=== PATIENT | female | born 1960 | race Caucasian/White ===

== ENCOUNTER → 2017-09-09 10:01 | Outpatient (CLI) | payer BC, SELFPAY ==
[2017-09-09 10:23] LABS: Blood Urea Nitrogen 20 mg/dL (7-18); Creatinine,Serum 0.71 mg/dL (0.55-1.02); Estimated Glomerular Filt Rate 85 ml/min (>60); GFR (African American) 102 ML/MIN (>60)
--- NOTE | 2017-09-09 10:45 | CT_ITS ---
CT chest w con HISTORY: ITS.REASON: COPD WITH ACUTE BRONCHITIS, CHRONIC PAIN ORDERING PHYSICIAN: Alice Singer PATIENT AGE: 57 years COMPARISON: 06/09/2010 TECHNIQUE: Axial images obtained following the administration of 75 mL of Isovue 370 . Sagittal, and coronal reformatted images are also generated and reviewed. All CT scans at the facility use one or more dose reduction, viz: automated exposure control; ma/kV adjustment per patient size (including targeted exams where dose is matched to indication; i.e. head); or iterative reconstruction technique. FINDINGS: No mediastinal or hilar mass or adenopathy. Normal heart size. No evidence of pericardial effusion. There are some small nodes in the AP window which are not significantly changed. Hyperinflation with attenuation of the peripheral pulmonary vessels consistent with obstructive chronic bronchitis with centrilobular emphysema. Atelectatic or fibrotic changes are present in the right middle lobe and lingula.. There is calcified granuloma in the right lower lobe medially. No suspicious pulmonary nodules. No central obstructing lesions. There is a 4 mm nodule in the left upper lobe laterally which has developed since previous calcified granulomas present in the left lower lobe medially. No effusions. No acute bony anomalies. Upper abdominal images are unremarkable. IMPRESSION: 1. Centrilobular emphysema with obstructive chronic bronchitis. 2. New areas of atelectasis or patchy infiltrate in the right middle lobe and lingula. 3. New 4 mm nodule in the left upper lobe laterally. Suggest 6 month follow-up in this patient with positive smoking history.
== END ==
PROVIDERS: Visit Provider Nurse Practitioner
DX: G89.29 Other chronic pain (principal); J44.0 Chronic obstructive pulmonary disease with (acute) lower respiratory infection
CPT/HCPCS: 36415; 71260; 82565; 84520; Q9967

== ENCOUNTER → 2017-09-26 10:44 | Outpatient (CLI) | payer BC, SELFPAY ==
[2017-09-26 12:30] LABS: Blood Urea Nitrogen 17 mg/dL (7-18); Creatinine,Serum 0.74 mg/dL (0.55-1.02); Estimated Glomerular Filt Rate 81 ml/min (>60); GFR (African American) 98 ML/MIN (>60)
== END ==
PROVIDERS: Visit Provider Nurse Practitioner
DX: R10.9 Unspecified abdominal pain (principal); R63.4 Abnormal weight loss
CPT/HCPCS: 36415; 82565; 84520

== ENCOUNTER → 2017-09-27 09:51 | Outpatient (CLI) | payer BC, SELFPAY ==
--- NOTE | 2017-09-27 10:00 | CT_ITS ---
CT abdomen pelvis wo/w con CLINICAL INDICATION: ITS.REASON: ABD PAIN, WGT LOSS ORDERING PHYSICIAN: Alice Singer PATIENT AGE: 57 years COMPARISON: None TECHNIQUE: Axial images obtained without and with contrast. Sagittal and coronal reformats. All CT scans at the facility use one or more dose reduction, viz: automated exposure control; ma/kV adjustment per patient size (including targeted exams where dose is matched to indication; i.e. head); or iterative reconstruction technique. PROCEDURE: Oral Contrast: None IV Contrast: 75 mL of Isovue-370. FINDINGS: No acute finding in the lung bases. Nonspecific subpleural opacities are present in the right lower lobe and left lower lobe laterally. There is a nonspecific isodense in the left hepatic lobe just to the right of the fissure for the ligamentum teres. This measures 4 mm and is too small to categorize. The liver has an otherwise unremarkable appearance. The spleen, adrenal glands, and pancreas are unremarkable. There is some minimal prominence of the common hepatic duct and intrahepatic biliary radicles. This is nonspecific. No radio opaque gallstones are evident. No renal or ureteral calculi. No hydronephrosis. Isodensity involves the left kidney centrally measuring 9 mm and may be due to renal cyst. No intestinal obstruction or free air. No pelvic mass or abnormal fluid collection. No focal inflammatory change. No evidence of appendicitis or diverticulitis. There is mild lumbar scoliosis convex left. A faint disc disease L5-S1. IMPRESSION: 1. No acute intra-abdominal or pelvic findings. 2. Minimal prominence of the common hepatic duct and intrahepatic biliary radicles etiology indeterminate. Please correlate with liver function test. 3. Other nonacute findings as described above
== END ==
PROVIDERS: PCP Nurse Practitioner; Visit Provider Nurse Practitioner
DX: R10.84 Generalized abdominal pain (principal); R63.4 Abnormal weight loss
CPT/HCPCS: 74170; Q9967

== ENCOUNTER → 2018-07-29 09:43 | Outpatient (CLI) | payer BC, SELFPAY ==
[2018-07-29 10:25] LABS: Blood Urea Nitrogen 19 mg/dL (7-18); Creatinine,Serum 0.83 mg/dL (0.55-1.02); Estimated Glomerular Filt Rate 70 ml/min (>60); GFR (African American) 85 ML/MIN (>60)
--- NOTE | 2018-07-29 13:46 | CT_ITS ---
CT chest w con HISTORY: Follow-up left upper lobe nodule ITS.REASON: FATIGUE,ABN CT CHEST ORDERING PHYSICIAN: Alice Singer APRN PATIENT AGE: 58 years COMPARISON: 09/09/2017 TECHNIQUE: Axial images obtained following the administration of 75 mL of Optiray 350 . Sagittal, and coronal reformatted images are also generated and reviewed. All CT scans at the facility use one or more dose reduction, viz: automated exposure control, ma/kV adjustment per patient size (including targeted exams where dose is matched to indication, i.e. head), or iterative reconstruction technique. FINDINGS: There is an irregular area of masslike consolidation involving the right upper lobe apical segment. This area measures 6 cm cephalad to caudad, 4 cm transverse and up to 3.5 cm AP. There are some peripheral air bronchograms inferiorly. This extends from the hilar region superiorly to the chest wall laterally. There is some decreased attenuation within the central aspect of this area which could be due to necrosis. No chest wall destruction evident. There is no mediastinal adenopathy. There is an additional nodular opacity in the right upper lobe anterior to the main area of consolidation. This measures 1 cm. There is also some opacification along the right minor fissure superiorly Heart size is normal. No evidence pericardial effusion. Changes of COPD are present. Previously noted 4 mm nodule in the left upper lobe is no longer apparent. There are fibrotic changes in the lung bases. Calcified granulomas present in the right lower lobe medially. No central obstructing lesions are evident. There is thickening of the apical segmental bronchus on the right with occlusion of the bronchus distally. No pleural effusion is evident. Upper abdominal images and bony structures are unremarkable. There is an old right second rib fracture. IMPRESSION: 1. Interval development of a masslike area of dense consolidation in the right upper lobe. This may be due to an area of dense pneumonia. Neoplasm however is an additional consideration. Bronchoscopy recommended for further evaluation. There are additional smaller opacities in the right upper lobe adjacent to the larger area and could be related to some additional pneumonic infiltrate. 2. COPD. Previously noted left upper lobe nodule is no longer apparent
--- NOTE | 2018-07-29 14:05 | HMH.ITSHM ---
Current Home Medications as stated by this patient Helena Tripathi or artist representative. []HYDROCODONE,VIT D,PREDNIZONE DOXYCUCLTRELEGA
== END ==
PROVIDERS: Visit Provider Nurse Practitioner
DX: R53.83 Other fatigue (principal); R93.89 Abnormal findings on diagnostic imaging of other specified body structures
CPT/HCPCS: 36415; 71260; 82565; 84520; Q9967

== ENCOUNTER → 2020-05-27 10:18 | Outpatient (CLI) | payer BC, SELFPAY ==
--- NOTE | 2020-05-27 10:26 | CT_ITS ---
PROCEDURE: CT ABDOMEN PELVIS W CON CLINICAL INDICATION: ABD PAIN, UPPER AND LOWER COMPARISON: CT ABDPELWW CT abdomen pelvis wo/w con from 09/27/2017 TECHNIQUE: IV Contrast: 75ML Isovue 370 Oral Contrast None Axial images obtained with sagittal and coronal reformats. All CT scans at the facility use one or more dose reduction, viz: automated exposure control, ma/kV adjustment per patient size (including targeted exams where dose is matched to indication, i.e. head), or iterative reconstruction technique. FINDINGS: LOWER THORAX: There is patchy consolidation involving the right middle lobe and lingula. There is also patchy infiltrate in the left lower lobe posteriorly. Nodular opacity is present in the right lower lobe posterior laterally with other smaller nodules at this area suggesting a tree-in-bud type infiltrate. The largest of these nodules measures approximately 6-7 mm. ABDOMEN & PELVIS: There is a 5 mm hypodensity involving the medial segment of left hepatic lobe, segment 4B nonspecific. The liver is otherwise unremarkable. The spleen, adrenal glands, pancreas, and kidneys have an unremarkable appearance aside from a small left renal cyst at approximately 10 mm. There are few small retroperitoneal lymph nodes nonspecific. Unremarkable appearing gallbladder. There is a mild amount of retained colonic feces. No evidence of appendicitis. No intestinal obstruction or free air. There is colonic diverticulosis. No evidence of diverticulitis. Multiple unopacified bowel loops in the abdomen or pelvis which could obscure or mimic pathology. If symptoms persist, consider repeat exam with IV and oral contrast. Mild lumbar scoliosis convex left. There is degenerative disc disease at L5-S1 and mild chronic wedging of L3. IMPRESSION: 1. No acute abdominal or pelvic findings. 2. Colonic diverticulosis without diverticulitis. 3. Multiple unopacified bowel loops in the abdomen or pelvis which could obscure or mimic pathology. If symptoms persist, consider repeat exam with IV and oral contrast. Dictated by: Huey Carvajal MD 05/28/2020 13:48 Huey Carvajal MD in [facility] 05/28/2020 13:48
[2020-05-27 11:03] LABS: Blood Urea Nitrogen 22 mg/dl (7-17); Estimated Glomerular Filt Rate 102 ml/min (>60); GFR (African American) 123 ML/MIN (>60)
== END ==
PROVIDERS: PCP Nurse Practitioner; Visit Provider Nurse Practitioner
DX: R10.84 Generalized abdominal pain (principal)
CPT/HCPCS: 36415; 74177; 82565; 84520; Q9967

== ENCOUNTER → 2021-06-09 15:19 | Outpatient (CLI) | payer BC, SELFPAY ==
--- NOTE | 2021-06-09 15:23 | XR_ITS ---
PROCEDURE INFORMATION: Exam: XR Right Hip Exam date and time: 06/09/2021 3:23 PM Age: 61 years old Clinical indication: Hip pain; Right hip; Additional info: RT hip pain TECHNIQUE: Imaging protocol: XR Right hip. Views: 2 or 3 views hip with pelvis when performed. COMPARISON: CT ABDOMEN PELVIS W CON 05/27/2020 11:31 AM FINDINGS: Bones/joints: There is no evidence of fracture or dislocation. Soft tissues: Unremarkable. Vasculature: Regions of atherosclerotic vascular calcification are demonstrated involving the femoral arteries bilaterally. IMPRESSION: Unremarkable right hip.
== END ==
PROVIDERS: PCP Family Medicine; Visit Provider Family Medicine
DX: M25.551 Pain in right hip (principal)
CPT/HCPCS: 73502

== ENCOUNTER → 2021-07-31 16:54 | Outpatient (CLI) | payer BC, SELFPAY ==
--- NOTE | 2021-07-31 16:59 | MR_ITS ---
PROCEDURE INFORMATION: Exam: MR Lumbar Spine Without Contrast Exam date and time: 07/31/2021 4:59 PM Age: 61 years old Clinical indication: Low back pain; Prior surgery; Surgery date: 6+ months; Additional info: Chronic RT sided lumbar radiculopathy. RT sided hip and leg pain x2yrs. Intermittent RT leg weakness. No injury or trauma. HX lumbar surgery xyrs ago. TECHNIQUE: Imaging protocol: Multiplanar magnetic resonance images of the lumbar spine without intravenous contrast. COMPARISON: CT ABDOMEN PELVIS W CON 05/27/2020 11:31 AM FINDINGS: Vertebrae: Mild anterior wedging of the anterior vertebral body of L2 with less than 5% loss of the vertical dimension. There is some increased signal on the inversion recovery sequence within this region of the superior anterior endplate of L2 and this may be an acute injury. Preservation of the posterior 3rd and no retropulsion. Edema within the inferior endplate of L5 and superior endplate of S1 compatible with type 1 Modic change. Mild levoscoliosis. Grade 1 retrolisthesis of L5 without evidence of pars defect. Spinal cord: Conus terminates at T12-L1. T12-L1: No evidence for central or neural foraminal canal stenosis or neural impingement. Prominent left paracentral and posterolateral disc protrusion. L1-L2: No evidence for central or neural foraminal canal stenosis or neural impingement. L2-L3: No evidence for central or neural foraminal canal stenosis or neural impingement. L3-L4: Mild central spinal canal stenosis due to circumferential disc bulge, ligamentum flavum hypertrophy and degenerative facet arthropathy. Mild left and moderate right foraminal stenosis due to posterolateral disc and osteophyte complex and degenerative facet arthropathy. L4-L5: There is clumping of the nerve roots within the thecal sac at the levels of L4-L5 and L5. This could be due to underlying arachnoiditis. CSF analysis is recommended. Mild central spinal canal stenosis due to circumferential disc bulge with a prominent posterior midline protrusion measuring 4 mm in AP dimension, ligamentum flavum hypertrophy and degenerative facet arthropathy. Mild stenosis of bilateral neural foramina due to posterolateral disc and osteophyte complex and degenerative facet arthropathy. L5-S1: Diffuse disc dehydration and loss of disc height, most severely at L4-L5 and L5-S1. No central canal stenosis. Left paracentral broad-based disc protrusion and osteophyte complex exert mass effect on the left S1 nerve root as it exits the thecal sac to into the lateral recess. Moderate bilateral foraminal stenosis due to loss of disc height, posterolateral disc and osteophyte complex and degenerative facet arthropathy. Sacrum/coccyx: Osteophytosis and eburnation of the sacroiliac articulating surfaces. Soft tissues: Unremarkable. Kidneys and ureters: Bosniak type 1 cysts in the left kidney measure up 13 mm. IMPRESSION: Mild central spinal canal stenosis is present at L3-L4 and L4-L5. Neural foraminal canal stenosis is present bilaterally at L3-L4, L4-L5 and L5-S1. Mass effect on the left S1 nerve root at L5-S1. Grade 1 retrolisthesis of L5 without evidence of pars defect. Clumping of the nerve roots within the thecal sac at the levels of L4-L5 and L5. This could be due to underlying arachnoiditis. CSF analysis is recommended. Mild anterior wedging of the anterior vertebral body of L2 with less than 5% loss of the vertical dimension. There is some increased signal on the inversion recovery sequence within this region of the superior anterior endplate of L2 and this may be an acute injury. Preservation of the post
== END ==
PROVIDERS: PCP Family Medicine; Visit Provider Family Medicine
DX: M54.16 Radiculopathy, lumbar region (principal); M54.41 Lumbago with sciatica, right side; G89.29 Other chronic pain; R29.898 Other symptoms and signs involving the musculoskeletal system; G95.19 Other vascular myelopathies; Z98.890 Other specified postprocedural states
CPT/HCPCS: 72148; 76376

== ENCOUNTER 2021-09-09 20:00 | Emergency (ER) | payer BC, SELFPAY ==
[2021-09-09 20:01] VITALS: BP 184/79; PULSE 84; RESP 18; TEMP 36.7; O2SAT 93; BMI 15.0
--- NOTE | 2021-09-09 20:50 | XR_ITS ---
PROCEDURE INFORMATION: Exam: XR Lumbosacral Spine Exam date and time: 09/09/2021 8:56 PM Age: 61 years old Clinical indication: Injury or trauma; Fall; Blunt trauma (contusions or hematomas); Additional info: Fall heel pain TECHNIQUE: Imaging protocol: XR of the lumbosacral spine. Views: 2 or 3 views. COMPARISON: 1. MR LUMBAR SPINE WO CON 07/31/2021 4:[address] abdomen pelvis wo/w con 09/27/2017 10:33 AM FINDINGS: Bones/joints: There are 5 lumbar type vertebrae. Mild wedging of the L3 and L4 vertebral bodies appears similar to prior MR. No acute fracture is appreciated. Mild lumbar degenerative changes noted. Levoscoliosis is unchanged from prior CT in 2020. There is prominent degenerative disc disease at L4-5 and L5-S1, unchanged. Soft tissues: Unremarkable. IMPRESSION: Mild lumbar levoscoliosis. No findings of fracture or traumatic malalignment.
--- NOTE | 2021-09-09 20:50 | XR_ITS ---
PROCEDURE INFORMATION: Exam: XR Right Foot Exam date and time: 09/09/2021 8:59 PM Age: 61 years old Clinical indication: Injury or trauma; Fall; Blunt trauma; Foot; Right; Additional info: Pain fall heel TECHNIQUE: Imaging protocol: XR Right foot. Views: 3 or more views. COMPARISON: No relevant prior studies available. FINDINGS: Bones/joints: No evidence of acute fracture or dislocation. No erosive disease. No significant degenerative change. Soft tissues: Heel pad edema noted. IMPRESSION: Heel pad edema. No acute bony injury.
--- NOTE | 2021-09-09 21:59 | HMH.EDGENADL ---
ED Disposition Clinical Impression: Contusion of right heel Disposition: Home, Self-Care Condition on Discharge: Good Instructions: DI for Contusion Additional Instructions: Use the walking boot for comfort and weight-bear as tolerated. Tylenol Motrin for pain. Referrals: Bryce Alonzo MD [Primary Care Provider] - - Critical Care Critical Care Time: No Attestation: On 09/09/21, the high probability of a clinically significant, sudden or life threatening deterioration of the following system(s) required my full and direct attention, intervention and personal management. The time I documented below is in addition to time spent performing reported procedures but includes the following listed in this critical care notation. Medical Decision Making - Medical Records Medical records reviewed: Yes: I reviewed the patient's medical records. - Marcus Inquiry Pt receiving controlled substance: No Vital Signs: 09/09/21 20:01 Temperature 98.0 F Temperature Source Oral Pulse Rate [Right] 84 Respiratory Rate 18 Blood Pressure [Right Arm] 184/79 H Blood Pressure Mean [Right Arm] 114 02 Sat by Pulse Oximetry 93 L General Adult HPI - General Chief complaint: Extremity Injury, Lower Stated complaint: AO 09/09@[id number] R Heel Time Seen by Provider: 09/09/21 21:59 Mode of Arrival: Wheelchair Limitations: No Limitations Description of Symptoms (Recalled from ER Triage Doc. by RN): pt states was on ladder, ladder slip on hardwood floor and pt landed on rt heel. pt c/o rt heel pain - History of Present Illness HPI narrative: 59-year-old female who fell off of a ladder approximately 4 feet up landing on her right heel and then sliding to the ground. She has pain over her right heel but has no other symptoms denies head trauma denies LOC. No medicine taken prior to arrival pain is 5 out of 10 with ambulation but stable at rest. Denies back pain hip pain knee pain. - Related Data Allergies Allergy/AdvReac Type Severity Reaction Status Date / Time No Known Allergies Allergy Unverified 03/19/17 14:28 [facility] History - Hepatitis A Screen Attestation statement:: This patient has been screened for Hepatitis A risk factors. ROS Obtained: Yes Systems reviewed as appropriate & no additional complaints Physical Exam - General General appearance: alert, in no apparent distress - Head Head exam: atraumatic, normocephalic - Eye Eye exam: Present: EOMI - ENT ENT exam: Present: mucous membranes moist - Neck Neck exam: Present: trachea midline - Chest Chest inspection: Present: symmetric chest wall rise - Respiratory Respiratory exam: Absent: respiratory distress - Cardiovascular Cardiovascular exam: Present: regular rate - Abdominal Exam Abdominal exam: Present: soft. Absent: distention - Extremities Exam Extremities exam: Present: normal inspection, other (Tenderness over the right heel no obvious deformity foot is neurovascularly intact there is no tenderness to the ankle knee or hip.) - Back Exam Back exam: Absent: tenderness, paraspinal tenderness - Neurological Exam Neurological exam: Present: alert, oriented X3 - Skin Skin exam: Present: warm, dry, intact
[2021-09-09 23:08] VITALS: BP 171/91; PULSE 81; RESP 18; TEMP 36.7; O2SAT 95
== END 2021-09-09 23:09 | disposition home or self-care (01) ==
PROVIDERS: Emergency Provider Student in an Organized Health Care Education/Training Program; PCP Family Medicine
DX: S90.31XA Contusion of right foot, initial encounter (principal); W11.XXXA Fall on and from ladder, initial encounter
CPT/HCPCS: 72100; 73630; 99283

== ENCOUNTER 2022-03-28 15:58 | Emergency (ER) | payer BC, SELFPAY ==
--- NOTE | 2022-03-28 16:08 | PC.NURSE ---
PATIENT SENT TO ER FROM [facility] WAITING ROOM AT THIS TIME D/T SOA AND OXYGEN SATURATION OF 83%
[2022-03-28 16:11] VITALS: BP 164/91; PULSE 93; RESP 20; O2SAT 94
[2022-03-28 16:16] VITALS: BP 164/91; PULSE 100; RESP 18; TEMP 37.2; O2SAT 93; BMI 16.0
--- NOTE | 2022-03-28 16:23 | PC.NURSE ---
ED MD AT BEDSIDE
--- NOTE | 2022-03-28 16:24 | XR_ITS ---
PROCEDURE INFORMATION: Exam: XR Chest Exam date and time: 03/28/2022 4:52 PM Age: 62 years old Clinical indication: Shortness of breath; Additional info: Jossie. Rtness of breath TECHNIQUE: Imaging protocol: Radiologic exam of the chest. Views: 1 view. COMPARISON: CHESTW CT chest w con 07/29/2018 1:58 PM FINDINGS: Lungs: There is new vague rounded focus of airspace opacity at the anterolateral left lung base , compared with 07/29/2018, concerning for pneumonia. Milder hazy reticulonodular opacities projected over the right lung base which could also be infection, rather than neoplasm. Chronic interstitial scarring and emphysematous changes greatest at the right upper lobe. Pleural spaces: Unremarkable. No significant pleural effusion. No pneumothorax. Heart/Mediastinum: The cardiac silhouette is normal. Vasculature: Calcified plaques in the aortic arch. Bones/joints: Thoracolumbar scoliosis. Bones appear slightly demineralized. IMPRESSION: 1. Findings suspicious for left lower lobe pneumonia, and possible milder reticulonodular infection in the right lower lung. Recommend follow-up imaging after treatment to confirm clearing, and exclude underlying pulmonary nodules/malignancy. 2. Underlying chronic pulmonary emphysema and interstitial scarring.
[2022-03-28 16:31] VITALS: BP 128/68; PULSE 94; RESP 20; O2SAT 92
--- NOTE | 2022-03-28 16:41 | PC.NURSE ---
XR AT BEDSIDE
--- NOTE | 2022-03-28 16:51 | ECG_ITS ---
APPROVED REPORT Exam: Resting ECG HR:90 bpm ECG Measurements Heart Rate 90 AXES WA 141 P 81 QRSd 73 QRS 75 QT 332 T 71 QTc 380 Conclusion SINUS RHYTHM NORMAL ECG UNCONFIRMED REPORT Electronically signed by : Bryce Winn MD 03/30/2022 08:54:34
[2022-03-28 16:55] VITALS: PULSE 93
[2022-03-28 17:00] VITALS: BP 144/63; PULSE 96; RESP 18; O2SAT 93
--- NOTE | 2022-03-28 17:06 | HMH.EDGENADL ---
Discharge Plan Disposition Patient Disposition: Home, Self-Care Condition: Other Prescriptions Prescriptions: New cefdinir 300 mg capsule 300 mg PO BID 10 Days Qty: 20 0RF Referrals Follow up/Referrals: Bryce Alonzo MD [Primary Care Provider] - See instructions Clinical Impressions Clinical Impression: Community acquired pneumonia, Acute hypoxemic respiratory failure Discharge ED Provider: Adelso Tavarez General Adult HPI General Chief complaint: Shortness of Breath/Dyspnea Stated complaint: exposed to flu, SOA cough juana Time Seen by Provider: 03/28/22 16:05 Mode of Arrival: Ambulatory Limitations: No Limitations Description of Symptoms (Recalled from ER Triage Doc. by RN): PT REPORTS INCREASED SHORTNESS OF BREATH AND WEAKNESS X 2 WEEKS. PT REPORTS FLU ON 03/11. COUGH AND FEVER History of Present Illness HPI narrative: This is a 62-year-old female with history of COPD currently still smoking, not on home oxygen presenting with shortness of breath. Patient states that she has been short of breath ever since 03/11/2022 when she began having flulike symptoms in the setting of flu positive contacts. Since that time, patient states that she has had cough, recently productive of green sputum. Has had chills, but no objective fevers. Denies chest pain, nausea, vomiting, but has had generalized fatigue. No unilateral weakness. Denies dysuria, hematuria, diarrhea, constipation, rash, sore throat, neurologic deficits, or any other concerning history. Went to urgent care just prior to coming here and saturations were low 80s, so she was sent to ED for further evaluation. Related Data Previous Rx's Medication Instructions Recorded cefdinir 300 mg capsule 300 mg PO BID 10 days #20 caps 03/28/22 Allergies Allergy/AdvReac Type Severity Reaction Status Date / Time No Known Allergies Allergy Unverified 03/19/17 14:28 [facility] Disclaimer: The information contained in this section may have been updated after the patient was seen, as this information can be updated by other users. Social History Smoking Status: Current every day smoker alcohol intake: former current occupational status: employed Travel in the last 8 weeks: None ROS Obtained: Yes All systems reviewed & no additional complaints except as documented Physical Exam General General appearance: alert and in no apparent distress Head Head exam: atraumatic, normocephalic and normal inspection Eye Eye exam: Present normal appearance, PERRL and EOMI ENT ENT exam: Present normal exam, normal oropharynx, mucous membranes moist, TM's normal bilaterally and normal external ear exam Neck Neck exam: Present normal inspection, full ROM and trachea midline; Absent meningismus or lymphadenopathy Chest Chest inspection: Present normal inspection and symmetric chest wall rise; Absent tenderness Respiratory Respiratory exam: Present wheezes; Absent normal lung sounds bilaterally, respiratory distress, accessory muscle use or prolonged expiratory phase Cardiovascular Cardiovascular exam: Present regular rate and normal rhythm; Absent JVD Abdominal Exam Abdominal exam: Present soft and normal bowel sounds; Absent distention, tenderness or guarding Extremities Exam Extremities exam: Present normal inspection, full ROM and normal capillary refill; Absent edema, joint swelling or calf tenderness Back Exam Back exam: Present normal inspection; Absent tenderness Neurological Exam Neurological exam: Present alert, oriented X3, CN II-XII intact and reflexes normal; Absent motor sensory deficit Psychiatric Psychiatric exam: Present normal affect and normal mood Skin Skin exam: Present warm, dry, intact and normal color Lymphatic Lymphatic Findings: no adenopathy Medical Decision Making Medical Records Medical records reviewed: Yes I reviewed the patient's medical records. Marcus Inquiry Pt receiving controlled substance: No Marcus was queried for
[2022-03-28 17:09] LABS: Chloride 101 mmol/L (98-107); Potassium 3.5 mmoL/L (3.5-5.1); Sodium 140 mmol/L (136-145)
[2022-03-28 17:12] LABS: Alanine Aminotransferase 15 U/L (12-78); Albumin Level 3.4 g/dl (3.5-5.0); Alkaline Phosphatase 127 U/L (38-126); Anion Gap 7.5 mEq/L (5-15); Aspartate Amino Transferase 23 U/L (14-36); Bilirubin,Total 0.3 mg/dl (0.2-1.3); Blood Urea Nitrogen 15 mg/dl (7-17); Carbon Dioxide 35 mmol/L (22.0-30.0); Creatinine Clearance Estimated 35 mL/min (50-200); Estimated Glomerular Filt Rate 125 ml/min (>60); GFR (African American) 151 ML/MIN (>60); Globulin 3.3 g/dL (1.3-3.2); Total Protein,Serum 6.7 g/dl (6.3-8.2)
[2022-03-28 17:13] LABS: Calcium 8.8 mg/dl (8.4-10.2); Glucose 106 mg/dl (74-100)
[2022-03-28 17:24] LABS: Troponin I < 0.01 ng/ml (0.00-0.034)
--- NOTE | 2022-03-28 17:44 | PC.NURSE ---
RESPIRATORY AT BEDSIDE
--- NOTE | 2022-03-28 17:44 | PC.NURSE ---
1740 DR. MCINTYRE AT BEDSIDE TO REEVALUATE PT
[2022-03-28 18:02] LABS: Basophils # 0.1 K/mm3 (0-0.2); Basophils % 0.5 % (0.1-2.0); Eosinophils # 0.2 K/mm3 (0.0-0.4); Eosinophils % 1.2 % (0.1-12.0); Hematocrit 37.2 % (37.0-47.0); Hemoglobin 11.9 g/dL (12.2-16.2); Lymphocytes # 2.1 K/mm3 (0.7-4.5); Lymphocytes % 14.6 % (10-50); Mean Corpuscular HGB Conc 31.9 g/dL (31.8-35.4); Mean Corpuscular Hemoglobin 29.9 pg (27.0-31.2); Mean Corpuscular Volume 93.6 fl (81-99); Monocytes # 0.7 K/mm3 (0.1-1.0); Monocytes % 4.9 % (1.7-9.3); Neutrophils % 78.8 % (37.0-80.0); Platelet Count 593 K/mm3 (142-424); Red Blood Count 3.98 M/mm3 (4.20-5.40); Red Cell Distribution Width 14.5 % (11.5-17.5)
--- NOTE | 2022-03-28 18:30 | PC.NURSE ---
1830 DR. MCINTYRE SPEAKING WITH PT AND DAUGHTER ABOUT POC
[2022-03-28 19:13] LABS: Coronavirus 19, PCR Not Detected (NotDetected); Influenza A, PCR Not Detected (NotDetected); Influenza B, PCR Not Detected (NotDetected)
--- NOTE | 2022-03-28 19:21 | PC.NURSE ---
DR. MCINTYRE AT BEDSIDE TO DISCUSS POC WITH PT AND FAMILY
[2022-03-28 20:35] VITALS: BP 142/71; PULSE 90; RESP 18; TEMP 37.2; O2SAT 94
== END 2022-03-28 20:38 | disposition home or self-care (01) ==
LOC: UTC 16:00 → ER 16:08
PROVIDERS: Emergency Provider Emergency Medicine; PCP Family Medicine
DX: R50.9 Fever, unspecified (principal); R53.1 Weakness; D72.829 Elevated white blood cell count, unspecified; Z20.822 Contact with and (suspected) exposure to COVID-19; J44.9 Chronic obstructive pulmonary disease, unspecified; Z87.891 Personal history of nicotine dependence
CPT/HCPCS: 71045; 80053; 84484; 85025; 93005; 96361; 96374; 96375; 99285; C9803; J0696; U0003; U0005

== ENCOUNTER 2022-10-21 23:45 | Emergency (ER) | payer BC, SELFPAY ==
[2022-10-21 23:46] VITALS: BP 170/78; PULSE 115; RESP 21; TEMP 37.1; O2SAT 84; BMI 16.0
--- NOTE | 2022-10-21 23:53 | ECG_ITS ---
APPROVED REPORT Exam: Resting ECG HR:104 bpm ECG Measurements Heart Rate 104 AXES VA 137 P 79 QRSd 82 QRS 78 QT 324 T 75 QTc 385 Conclusion SINUS TACHYCARDIA WITH OCCASIONAL VENTRICULAR PREMATURE COMPLEXES Biatrial abnormality ABNORMAL ECG INTERPRETATION BASED ON A DEFAULT AGE OF 39 YEARS UNCONFIRMED REPORT Electronically signed by : Bryce Winn MD 10/22/2022 17:57:47
--- NOTE | 2022-10-22 00:01 | XR_ITS ---
PROCEDURE INFORMATION: Exam: XR Chest Exam date and time: 10/22/2022 12:21 AM Age: 62 years old Clinical indication: Shortness of breath; Additional info: SOA, hypoxia TECHNIQUE: Imaging protocol: Radiologic exam of the chest. Views: 2 views. COMPARISON: CR XR CHEST PORTABLE 03/28/2022 4:52 PM FINDINGS: Lungs: Severe pulmonary hyperinflation. Heterogeneous opacities are seen throughout the right lung, potentially representing pneumonia. There is a nodular focus in the right mid lung measuring 3.1 x 1.8 cm, potentially confluent pneumonia, but a mass lesion is not excluded. Probable nipple shadow on the left. Pleural spaces: No pleural effusion. No pneumothorax. Heart/Mediastinum: Cardiac silhouette is normal in size for technique. Bones/joints: Cervical fusion hardware is partly visualized. There is biconcave thoracolumbar scoliosis. Soft tissues: Normal. IMPRESSION: Hyperinflated lungs. Heterogeneous opacities throughout the right lung are concerning for pneumonia. Nodular density in the right mid lung could be confluent pneumonia but a mass is not excluded. There is a nipple shadow versus a pulmonary nodule on the left. Consider chest CT to further evaluate these indeterminate findings.
[2022-10-22 00:12] LABS: Coronavirus 19, PCR Not Detected (NotDetected); Influenza A, PCR Not Detected (NotDetected); Influenza B, PCR Not Detected (NotDetected)
[2022-10-22 00:20] LABS: VBG Base Excess 0.7 mmol/L (-2.4-2.3); VBG HCO3 26.5 mmol/L (23-30); VBG Oxygen Saturation 69.7 % (50-70); VBG PH 7.34 mmol/L (7.31-7.41); VBG PO2 35.5 mmol/L (28-40); VBG Total CO2 28.1 mmol/L (23-27)
--- NOTE | 2022-10-22 00:21 | PC.NURSE ---
notified md of critical CO2 50.7
[2022-10-22 00:22] LABS: VBG PCO2 50.7 mmol/L (35-51)
[2022-10-22 00:22] LABS: Basophils # 0.1 K/mm3 (0-0.2); Basophils % 0.6 % (0.1-2.0); Eosinophils # 0.1 K/mm3 (0.0-0.4); Eosinophils % 0.6 % (0.1-12.0); Hematocrit 43.9 % (37.0-47.0); Hemoglobin 13.5 g/dL (12.2-16.2); Lymphocytes # 3.2 K/mm3 (0.7-4.5); Lymphocytes % 14.5 % (10-50); Mean Corpuscular HGB Conc 30.7 g/dL (31.8-35.4); Mean Corpuscular Hemoglobin 29.6 pg (27.0-31.2); Mean Corpuscular Volume 96.4 fl (81-99); Mean Platelet Volume 7.9 fl (7.4-10.4); Monocytes # 1.1 K/mm3 (0.1-1.0); Monocytes % 4.9 % (1.7-9.3); Neutrophils # 17.7 K/mm3 (1.8-7.8); Neutrophils % 79.4 % (37.0-80.0); Platelet Count 553 K/mm3 (142-424); Red Blood Count 4.55 M/mm3 (4.20-5.40); Red Cell Distribution Width 13.6 % (11.5-17.5); White Blood Count 22.3 K/mm3 (4.8-10.8)
[2022-10-22 00:26] LABS: MANUAL DIFFERENTIAL MANUAL DIFFERENTIAL (MANUAL DIFF)
[2022-10-22 00:27] LABS: Chloride 99 mmol/L (98-107); Potassium 4.5 mmoL/L (3.5-5.1); Sodium 139 mmol/L (136-145)
[2022-10-22 00:30] LABS: Alanine Aminotransferase 25 U/L (12-78); Albumin Level 4.3 g/dl (3.5-5.0); Albumin/Globulin Ratio 1.2 (1.1-1.8); Alkaline Phosphatase 116 U/L (38-126); Anion Gap 17.5 mEq/L (5-15); Aspartate Amino Transferase 42 U/L (14-36); Bilirubin,Total 0.6 mg/dl (0.2-1.3); Blood Urea Nitrogen 18 mg/dl (7-17); Carbon Dioxide 27 mmol/L (22.0-30.0); Creatinine Clearance Estimated 35 mL/min (50-200); Estimated Glomerular Filt Rate 101 ml/min (>60); GFR (African American) 122 ML/MIN (>60); Globulin 3.5 g/dL (1.3-3.2); Total Protein,Serum 7.8 g/dl (6.3-8.2)
[2022-10-22 00:31] LABS: Calcium 9.7 mg/dl (8.4-10.2); Glucose 129 mg/dl (74-100)
[2022-10-22 00:37] LABS: D-Dimer 0.73 ug/mL (0.0-0.5)
[2022-10-22 00:38] LABS: Lactic Acid 1.1 mmol/L (0.7-2.1)
[2022-10-22 00:40] LABS: Lymphocytes % 25 % (10-50); Monocytes % 1 % (2-9); Neutrophils % 73 % (42-76); Platelet Estimate Slight Increase; RBC Morphology Normal; Total Cells Counted 100
[2022-10-22 00:49] VITALS: PULSE 83; PULSE 84
--- NOTE | 2022-10-22 00:53 | HMH.EDGENADL ---
Discharge Plan Disposition Patient Disposition: Left Against Medical Advice Condition: Fair Prescriptions Prescriptions: New levofloxacin 750 mg tablet 750 mg PO DAILY 7 Days Qty: 7 0RF prednisone 50 mg tablet 50 mg PO DAILY 5 Days Qty: 5 0RF ipratropium-albuterol 0.5 mg-3 mg(2.5 mg base)/3 mL solution for nebulization 3 ml inhalation Q4H PRN (Reason: wheezing) Qty: 90 0RF No Action cefdinir 300 mg capsule 300 mg PO BID 10 Days Qty: 20 0RF Referrals Follow up/Referrals: Bryce Alonzo MD [Primary Care Provider] - See instructions Activity Restrictions/Add. Instructions Additional Instructions/Restrictions: You were evaluated in the emergency department today. At this time, we highly advised admission, however you chose to leave AGAINST MEDICAL ADVICE. Given this, prescriptions for antibiotics, steroids, and nebulized breathing treatments were sent to the pharmacy for you. Should you wish to return to be admitted, we would happily reassess you and admission to the hospital. Follow-up with your primary care provider over the next 3 days. Return to the emergency department for any new or worsening symptoms. Clinical Impressions Clinical Impression: Acute hypoxemic respiratory failure Community acquired pneumonia Qualifiers: Laterality: right Lung location: unspecified part of lung Qualified Code(s): J18.9 - Pneumonia, unspecified organism Sepsis Qualifiers: Sepsis type: sepsis due to unspecified organism Sepsis acute organ dysfunction status: with acute organ dysfunction Severe sepsis acute organ dysfunction type: acute respiratory failure Acute respiratory failure type: with hypoxia Severe sepsis shock status: without septic shock Qualified Code(s): A41.9 - Sepsis, unspecified organism Instructions Patient Instructions: DI for Chronic Obstructive Pulmonary Disease, DI for Pneumonia -- Adult Discharge ED Provider: Gini Castillo General Adult HPI General Chief complaint: Shortness of Breath/Dyspnea Stated complaint: SOA, fever Time Seen by Provider: 10/22/22 00:00 Mode of Arrival: Ambulatory Source of Information: Patient Limitations: No Limitations Description of Symptoms (Recalled from ER Triage Doc. by RN): ptr c/o SOA, weakness,body aches x 1 week. History of Present Illness HPI narrative: This patient is a 62-year-old female with a history of COPD presented to the emergency department for evaluation with concern for shortness of breath. She states that she has felt ill for about 1 week with complaints of pain when taking a deep breath, subjective fever, chills, cough, and shortness of breath. She states that today, she felt she could not do it anymore. She has inhalers at home but nothing seemed to improve her symptoms. She states that she was previously treated for pneumonia in March and this feels similar. She states that she required oxygen at that time but has not required oxygen since. She denies any other concerns, such as abdominal pain, nausea, vomiting, leg swelling, or other concerns. She denies any history of blood clots, clotting disorders, or cardiac issues. Related Data Previous Rx's Medication Instructions Recorded cefdinir 300 mg capsule 300 mg PO BID 10 days #20 caps 03/28/22 ipratropium 0.5 mg-albuterol 3 mg 3 ml inhalation Q4H PRN wheezing 10/22/22 (2.5 mg base)/3 mL nebulization #90 mL soln levofloxacin 750 mg tablet 750 mg PO DAILY 7 days #7 tabs 10/22/22 prednisone 50 mg tablet 50 mg PO DAILY 5 days #5 tabs 10/22/22 Allergies Allergy/AdvReac Type Severity Reaction Status Date / Time No Known Allergies Allergy Unverified 03/19/17 14:28 [facility] Disclaimer: The information contained in this section may have been updated after the patient was seen, as this information can be updated by other users. Social History Smoking Status: Current every day smoker alcohol intake: former
[2022-10-22 01:00] VITALS: BP 151/70; PULSE 95; O2SAT 92
[2022-10-22 01:06] LABS: Troponin I < 0.01 ng/ml (0.00-0.034)
[2022-10-22 01:14] LABS: Procalcitonin 0.066 ng/mL (0.0-2.0)
[2022-10-22 01:30] VITALS: BP 150/68; PULSE 93; O2SAT 94
[2022-10-22 02:00] VITALS: BP 167/81; PULSE 94; O2SAT 93
[2022-10-22 04:00] VITALS: BP 152/81; PULSE 91; RESP 20; TEMP 37.1; O2SAT 93
== END 2022-10-22 04:35 | disposition left against medical advice (07) ==
PROVIDERS: Emergency Provider Emergency Medicine; PCP Family Medicine
DX: A41.9 Sepsis, unspecified organism (principal); R65.20 Severe sepsis without septic shock; J96.01 Acute respiratory failure with hypoxia; J18.9 Pneumonia, unspecified organism; J44.9 Chronic obstructive pulmonary disease, unspecified; I49.3 Ventricular premature depolarization; F17.200 Nicotine dependence, unspecified, uncomplicated
CPT/HCPCS: 71046; 80053; 82803; 83605; 84145; 84484; 85007; 85025; 85378; 87040; 87636; 93005; 96361; 96365; 96366; 96375; 99291; J0456; J3370

== ENCOUNTER 2023-09-02 13:05 | Outpatient (CLI) | payer BC, SELFPAY ==
--- NOTE | 2023-09-02 13:15 | CT_ITS ---
FINAL REPORT TECHNIQUE: Thin section axial images were obtained from the lung apices to the upper abdomen by computed tomography. Reformatted images were obtained and reviewed. This study was performed with techniques to keep radiation doses al low as reasonably achievable (ALARA). Individualized dose reduction techniques using automated exposure control or adjustment of mA and/or kV according to the patient's size were employed. CLINICAL HISTORY: H/O TOBACCO USE 1 pack per day x 50 yrs COMPARISON: None FINDINGS: CHEST CT LOW DOSE 64-year-old female, [id number] history, current smoker CTDI vol (mGy): 2.9 DLP (mGy-cm): 96.38 There is no axillary adenopathy. There are multiple small bilateral mediastinal nodes present. The heart is normal in size. Moderate to severe coronary artery calcifications are present, responsible for the S designation in this patient. There is no pericardial or pleural effusion. There is mild emphysema and moderate pulmonary scarring. Scarring is present in the apices. Lung window images demonstrate an 18 mm pleural-based nodular opacity in the posterior right lower lobe. Several scattered calcified granulomas are present. Limited images of the upper abdomen are unremarkable. IMPRESSION: Lung-RADS category 4B-S. Recommend PET/CT to evaluate the 18 mm pleural-based nodular opacity in the posterior right lower lobe. The S designation is for moderate to severe coronary artery calcifications. Reviewed, Interpreted and Dictated by Navid Dunn III, MD Transcribed by Vanessa Castro Authenticated and . [facility]
== END 2023-09-02 23:59 | disposition home or self-care (01) ==
LOC: RAD 13:06
PROVIDERS: PCP Family Medicine; Visit Provider Family Medicine
DX: Z12.2 Encounter for screening for malignant neoplasm of respiratory organs (principal); F17.210 Nicotine dependence, cigarettes, uncomplicated
CPT/HCPCS: 71271

== ENCOUNTER 2024-03-23 00:58 | Emergency (ER) | payer BC, SELFPAY ==
[2024-03-23] VITALS (14 sets, daily range): BP systolic 150–206; BP diastolic 67–86; PULSE 83–113; RESP 18–24; TEMP 34.4–36.6; O2SAT 75–99; BMI 14.5
--- NOTE | 2024-03-23 01:09 | ED_ITS ---
Discharge Plan Disposition Patient Disposition: Left Against Medical Advice Condition: Serious Prescriptions Prescriptions: New azithromycin 250 mg tablet See Rx Instructions .ROUTE .COMPLEX Qty: 6 0RF Rx Instructions: For 250 mg dose pack: take 500 mg today (day 1), then 250 mg for 4 days (days 2-5) prednisone 50 mg tablet 50 mg PO DAILY 5 Days Qty: 5 0RF No Action levofloxacin 750 mg tablet 750 mg PO DAILY 7 Days Qty: 7 0RF prednisone 50 mg tablet 50 mg PO DAILY 5 Days Qty: 5 0RF ipratropium-albuterol 0.5 mg-3 mg(2.5 mg base)/3 mL solution for nebulization 3 ml inhalation Q4H PRN (Reason: wheezing) Qty: 90 0RF cefdinir 300 mg capsule 300 mg PO BID 10 Days Qty: 20 0RF Referrals Follow up/Referrals: Bryce Alonzo MD [Primary Care Provider] - See instructions Activity Restrictions/Add. Instructions Additional Instructions/Restrictions: Please take antibiotics and steroids as prescribed for treatment of COPD exacerbation. Please follow-up with your primary care provider. Please return to the emergency department if you develop any new or worsening symptoms or become concerned for your health. Clinical Impressions Clinical Impression: Acute exacerbation of chronic obstructive airways disease, Rhinovirus infection Respiratory failure Qualifiers: Chronicity: acute on chronic Respiratory failure complication: hypoxia and hypercapnia Qualified Code(s): J96.21 - Acute and chronic respiratory failure with hypoxia Print Language Print Language: Mohawk Discharge ED Provider: Pablito Velásquez General Adult HPI General Chief complaint: Shortness of Breath/Dyspnea Stated complaint: SOA, fever, weakness Time Seen by Provider: 03/23/24 01:09 History of Present Illness HPI narrative: 63-year-old female with history of COPD presents for shortness of breath. She reports that her family has been sick with a URI and now she is getting sick as well. She reports cough that is more productive than normal. She reports difficulty breathing. Denies fever at home. Related Data Previous Rx's ?Medication ?Instructions ?Recorded cefdinir 300 mg capsule 300 mg PO BID 10 days #20 caps 03/28/22 ipratropium 0.5 mg-albuterol 3 mg 3 ml inhalation Q4H PRN wheezing 10/22/22 (2.5 mg base)/3 mL nebulization #90 mL soln levofloxacin 750 mg tablet 750 mg PO DAILY 7 days #7 tabs 10/22/22 prednisone 50 mg tablet 50 mg PO DAILY 5 days #5 tabs 10/22/22 azithromycin 250 mg tablet See Rx Instructions PO .COMPLEX #6 03/23/24 tabs prednisone 50 mg tablet 50 mg PO DAILY 5 days #5 tabs 03/23/24 Allergies Allergy/AdvReac Type Severity Reaction Status Date / Time No Known Allergies Allergy Unverified 03/19/17 14:28 [facility] Disclaimer: The information contained in this section may have been updated after the patient was seen, as this information can be updated by other users. Social History Smoking Status: Current every day smoker alcohol intake: former current occupational status: employed Travel in the last 8 weeks: None Have you lived/traveled outside [place] in past 30 days?: No Contact w/someone who lives/traveled outside [place] past 30 days?: No Exposure to someone with infectious disease in past 14 days?: No Do you have a fever (greater than 100.4 F or 38 C)?: Yes Have you tested positive for COVID-19: No Exposed to someone with COVID-19 in past 14 days?: No Do you have a sore throat?: No Do you have a cough?: No Do you have any weakness?: Yes Do you have any diarrhea?: No Are you experiencing any unusual bleeding?: No Do you have any muscle aches/pain?: No Do you have any abdominal pain?: No Are you experiencing loss of taste or smell?: No Other Medical History Have you received the Flu Vaccine for this season: Yes Have you received the Pneumonia Vaccine: No ROS Obtained: Yes All systems reviewed & no additional complaints except as documented Physical Exam General General appearance: in distress (Respiratory) Head Head exam: atraumatic and normocephalic Eye Eye exam: Present normal appearance, PERRL and EOMI ENT ENT exam: Present normal oropharynx and normal external ear exam Neck Neck exam: Present normal inspection and full ROM Chest Chest inspection: Absent normal inspection (Barrel chested), symmetric chest wall rise or tenderness Respiratory Respiratory exam: Present respiratory distress, wheezes, prolonged expiratory phase and other (Minimal air movement bilaterally) Cardiovascular Cardiovascular exam: Present regular rate and normal rhythm Abdominal Exam Abdominal exam: Present soft; Absent distention, tenderness or guarding Extremities Exam Extremities exam: Present normal inspection; Absent edema or joint swelling Back Exam Back exam: Present normal inspection; Absent tenderness Neurological Exam Neurological exam: Present alert and oriented X3; Absent motor sensory deficit Psychiatric Psychiatric exam: Present normal affect and normal mood Skin Skin exam: Present warm, dry and normal color Lymphatic Lymphatic Findings: no adenopathy Medical Decision Making Medical Records Medical records reviewed: Yes I reviewed the patient's medical records. Screening: Per USPSTF and CDC recommendations, given the prevalence of disease in our region, it is our hospital?s policy to screen for HIV and viral Hepatitis for all patients aged 18 and over and those with ongoing risk factors. Marcus Inquiry Pt receiving controlled substance: No Marcus was queried for this patient: No Vital Signs: 03/23/24 01:00 03/23/24 01:12 03/23/24 01:15 Temperature 94 F L Temperature Source Oral Pulse Rate 93 H Pulse Rate [Right Radial] 113 H Respiratory Rate 24 Blood Pressure Blood Pressure [Right Arm] 206/82 H Blood Pressure Mean [Right Arm] 123 Blood Pressure Source [Right Arm] Automatic Cuff Blood Pressure Position Blood Pressure Position [Right Arm] Supine 02 Sat by Pulse Oximetry 75 L 94 L 98 Oxygen Delivery Method Room Air Nasal Cannula Oxygen Flow Rate (LPM) 2.5 2 03/23/24 01:56 03/23/24 02:01 03/23/24 02:30 Temperature Temperature Source Pulse Rate 90 91 H 83 Pulse Rate [Right Radial] Respiratory Rate Blood Pressure 170/72 H 150/86 H 166/75 H Blood Pressure [Right Arm] Blood Pressure Mean [Right Arm] Blood Pressure Source [Right Arm] Blood Pressure Position Blood Pressure Position [Right Arm] 02 Sat by Pulse Oximetry 96 99 93 L Oxygen Delivery Method Oxygen Flow Rate (LPM) 03/23/24 03:00 03/23/24 03:30 03/23/24 04:15 Temperature Temperature Source Pulse Rate 83 87 95 H Pulse Rate [Right Radial] Respiratory Rate Blood Pressure 161/70 H 160/74 H Blood Pressure [Right Arm] Blood Pressure Mean [Right Arm] Blood Pressure Source [Right Arm] Blood Pressure Position Blood Pressure Position [Right Arm] 02 Sat by Pulse Oximetry 95 94 L 97 Oxygen Delivery Method Oxygen Flow Rate (LPM) 03/23/24 04:30 03/23/24 04:45 03/23/24 05:00 Temperature Temperature Source Pulse Rate 108 H 99 H 100 H Pulse Rate [Right Radial] Respiratory Rate Blood Pressure Blood Pressure [Right Arm] Blood Pressure Mean [Right Arm] Blood Pressure Source [Right Arm] Blood Pressure Position Blood Pressure Position [Right Arm] 02 Sat by Pulse Oximetry 98 98 92 L Oxygen Delivery Method Oxygen Flow Rate (LPM) 03/23/24 05:55 03/23/24 06:00 Temperature 97.9 F Temperature Source Oral Pulse Rate 92 H 94 H Pulse Rate [Right Radial] Respiratory Rate 18 Blood Pressure 152/67 H 152/67 H Blood Pressure [Right Arm] Blood Pressure Mean [Right Arm] Blood Pressure Source [Right Arm] Blood Pressure Position Sitting Blood Pressure Position [Right Arm] 02 Sat by Pulse Oximetry 92 L Oxygen Delivery Method Nasal Cannula Oxygen Flow Rate (LPM) 2 2 Lab Data Lab results reviewed: Yes I reviewed the patient's lab results. Lab Results 03/23/24 01:22: WBC 21.3 H*, RBC 4.49, Hgb 13.2, Hct 41.1, MCV 91.5, MCH 29.4, MCHC 32.1, RDW 13.2, Plt Count 519 H, MPV 9.0, Neut % (Auto) 79.6, Lymph % (Auto) 14.6, [place] % (Auto) 5.0, Eos % (Auto) 0.0 L, Baso % (Auto) 0.2, Neut # (Auto) 17.0 H, Lymph # (Auto) 3.1, [place] # (Auto) 1.1 H, Eos # (Auto) 0.0, Baso # (Auto) 0.0, Total Counted 100, Neutrophils % (Manual) 68, Lymphocytes % (Manual) 28, Monocytes % (Manual) 2, Metamyelocytes % 1.0, Myelocytes % 1, Platelet Estimate Slight increase, RBC Morphology Normal, Sodium 139, Potassium 3.3 L, Chloride 102, Carbon Dioxide 30, Anion Gap 10.3, BUN 31 H, Creatinine 0.90, Estimated Creat Clear 31, Estimated GFR 63, Est GFR ( Amer) 76, Glucose 121 H, Calcium 10.2, Total Bilirubin 0.3, AST 38 H, ALT 24, Alkaline Phosphatase 113, Total Protein 7.8, Albumin 4.4, Globulin 3.4 H, Albumin/Globulin Ratio 1.3 03/23/24 01:26: VBG pH 7.29 L, VBG pCO2 59.4 H, VBG pO2 31.4, VBG HCO3 28.0, VBG Total CO2 29.8 H, VBG O2 Saturation 60.5, VBG Base Excess 1.4, VBG Lactic Acid 1.9 03/23/24 01:57: SARS-CoV-2 (PCR) Not detected, Influenza Type A (PCR) Not detected, Influenza Type B (PCR) Not detected, RSV (PCR) Not detected, Rhinovirus (PCR) Detected 03/23/24 01:22 03/23/24 01:22 Orders (Tests/Meds): ED MEDICATIONS Discontinued Medications Generic Name Dose Route Start Last Admin Trade Name Freq PRN Reason Stop Dose Admin Albuterol/Ipratropium 9 ml 03/23/24 01:13 03/23/24 01:40 Ipratropium/Albuterol 3 Ml Neb IH 03/23/24 01:14 9 ml ONCE ONE Administration Azithromycin 500 mg 03/23/24 03:42 03/23/24 03:49 Azithromycin 250mg Tablet PO 03/23/24 03:43 500 mg ONCE ONE Administration Magnesium Sulfate 2 gm in 50 mls @ 150 mls/hr 03/23/24 01:13 03/23/24 01:31 Magnesium Sulfate 2gm/50ml Premix IV 03/23/24 01:32 150 mls/hr ONCE ONE Administration Methylprednisolone Sodium Succinate 125 mg 03/23/24 01:13 03/23/24 01:31 Methylprednisolone Sod Succ 125mg Vial IV 03/23/24 01:14 125 mg ONCE ONE Administration ORDERS Category Date Time Status CXR --portable [XR chest portable] Stat Exams 03/23/24 01:13 Completed CBC w/Auto Diff [Complete Blood Count Auto Diff] Stat Lab 03/23/24 01:22 Completed CMP [Comprehensive Metabolic Panel] Stat Lab 03/23/24 01:22 Completed HIV Combo Stat Lab 03/23/24 01:22 Received Hep C Ab with Reflex to RNA Stat Lab 03/23/24 01:22 Received Mini Respiratory Panel Stat Lab 03/23/24 01:57 Completed VBG [Venous Blood Gas] Stat RT 03/23/24 01:26 Completed ECG Data Tracing #1: I reviewed this ECG and interpreted as documented below: Sinus rhythm, rate of 85, no concerning ST or T wave changes ECG initial impression date: 03/23/24 ECG initial impression time: 01:13 Tissue Perfus/Sepsis Re-Eval Sepsis Re-Evaluation Performed: Yes Date Performed: 03/23/24 Time Performed: 06:05 Medical Decision Narrative: 63-year-old female with history of COPD, not on oxygen at baseline presents for worsening cough and shortness of breath at home after being exposed to URI.. History was obtained via interactive discussion with patient, chart review. On arrival, patient is afebrile, hypoxic satting in the 70s on room air, tachypneic, using accessory muscles, poor air movement bilaterally with wheezing and prolonged expiratory phase consistent with severe COPD exacerbation. Patient was initiated on 3 [id number] DuoNebs and IV magnesium as well as steroids. Oxygenation improved with supplemental oxygen. Chest x-ray was obtained and interpreted by me shows hyperinflated lungs but no focal opacity. Basic labs obtained and interpreted by me significant for white count of 21 with neutrophil predominance, VBG shows mild respiratory acidosis. Respiratory panel shows rhinovirus. On reassessment patient disconnected herself from the oxygen and ambulated back and forth to the bathroom and on return was satting in the 70s. I attempted to place the oxygen back on her and informed her that she would require admission because of her hypoxia, but she reports that she is absolutely not going to be admitted because she cannot afford it. I talked with her about the risk of if she were to leave here because of her severe hypoxia and her continued respiratory distress. She understands this but is yet unwilling to be admitted. I was able to convince her to stay for an hour of continuous albuterol. Some improvement in air movement after this. Patient ultimately left AMA despite discussion of the risks and despite active hypoxia. She was discharged with azithromycin and steroids. Patient was encouraged to return if she changes her mind. Patient flagged positive for sepsis. Antibiotics and fluids were not were not initiated as patient is not hypotensive and does not have an obvious bacterial infection. I believe her presentation is consistent with COPD, not sepsis. Procedures Risk/Benefits of Procedure(s) Were Explained: Yes Critical Care Critical Care Time Critical Care Time: Yes Attestation: On 12/23/24, the high probability of a clinically significant, sudden or life threatening deterioration of the following system(s) required my full and direct attention, intervention and personal management. The time I documented below is in addition to time spent performing reported procedures but includes the following listed in this critical care notation. Total Time Total Critical Care Time: 35
--- NOTE | 2024-03-23 01:13 | XR_ITS ---
PROCEDURE INFORMATION: Exam: XR Chest Exam date and time: 03/23/2024 1:23 AM Age: 63 years old Clinical indication: Cough; Additional info: Copd, productive cough, hypoxia TECHNIQUE: Imaging protocol: Radiologic exam of the chest. Views: 1 view. COMPARISON: CT LUNG SCREENING 09/02/2023 1:20 PM FINDINGS: Lungs: The lungs are hyperinflated. There is no focal airspace consolidation. Mild chronic appearing interstitial opacities. Pleural spaces: There is flattening of the bilateral hemidiaphragms. There is no pleural effusion or pneumothorax. Heart/Mediastinum: The heart is normal in size. There is mild calcification of the aorta Bones/joints: Intact. Cervical fusion plate visualized. IMPRESSION: 1. No acute disease. 2. Minor hyperinflation, suspicious for COPD.
--- NOTE | 2024-03-23 01:13 | ECG_ITS ---
APPROVED REPORT Exam: Resting ECG HR:85 bpm ECG Measurements Heart Rate 85 AXES WA 146 P 81 QRSd 81 QRS 78 QT 341 T 76 QTc 383 Conclusion SINUS RHYTHM POSSIBLE RIGHT ATRIAL ENLARGEMENT [0.25mV P-WAVE] MODERATE VOLTAGE CRITERIA FOR LVH, CONSIDER NORMAL VARIANT [MEETS CRITERIA IN ONE OF: R(aVL), S(V1), R(V5), R(V5/V6)+S(V1)] No STEMI Electronically signed by : JC THOMSON, 03/23/2024 16:08:29
[2024-03-23] MEDS: METHYLPREDNISOLONE SOD SUCC 125MG VIAL 125 MG IV (01:31)
[2024-03-23] MEDS: MAGNESIUM SULFATE IN WATER 2 GM/50 ML PIGGYBACK IV (01:31)
[2024-03-23 01:38] LABS: White Blood Count 21.3 K/mm3 (4.8-10.8)
[2024-03-23 01:39] LABS: Lactate Venous 1.9 mmol/L (0.4-2.0); VBG Base Excess 1.4 mmol/L (-2.4-2.3); VBG Oxygen Saturation 60.5 % (50-70); VBG PH 7.29 mmol/L (7.31-7.41); VBG PO2 31.4 mmol/L (28-40); VBG Total CO2 29.8 mmol/L (23-27)
[2024-03-23 01:39] LABS: Basophils % 0.2 % (0.1-2.0); Hematocrit 41.1 % (37.0-47.0); Hemoglobin 13.2 g/dL (12.2-16.2); Lymphocytes % 14.6 % (10-50); Mean Corpuscular HGB Conc 32.1 g/dL (31.8-35.4); Mean Corpuscular Hemoglobin 29.4 pg (27.0-31.2); Mean Corpuscular Volume 91.5 fl (81-99); Neutrophils % 79.6 % (37.0-80.0); Platelet Count 519 K/mm3 (142-424); Red Blood Count 4.49 M/mm3 (4.20-5.40); Red Cell Distribution Width 13.2 % (11.5-17.5)
[2024-03-23 01:40] LABS: Lymphocytes # 3.1 K/mm3 (0.7-4.5); Monocytes # 1.1 K/mm3 (0.1-1.0)
[2024-03-23] MEDS: IPRATROPIUM/ALBUTEROL 3 ML NEB 9 ML IH (01:40)
[2024-03-23 01:41] LABS: MANUAL DIFFERENTIAL MANUAL DIFFERENTIAL (MANUAL DIFF)
[2024-03-23 01:43] LABS: VBG PCO2 59.4 mmol/L (35-51)
[2024-03-23 01:52] LABS: Alanine Aminotransferase 24 U/L (12-78); Albumin Level 4.4 g/dl (3.5-5.0); Albumin/Globulin Ratio 1.3 (1.1-1.8); Alkaline Phosphatase 113 U/L (38-126); Anion Gap 10.3 mEq/L (5-15); Aspartate Amino Transferase 38 U/L (14-36); Bilirubin,Total 0.3 mg/dl (0.2-1.3); Blood Urea Nitrogen 31 mg/dl (7-17); Calcium 10.2 mg/dl (8.4-10.2); Carbon Dioxide 30 mmol/L (22.0-30.0); Chloride 102 mmol/L (98-107); Creatinine Clearance Estimated 31 mL/min (50-200); Estimated Glomerular Filt Rate 63 ml/min (>60); GFR (African American) 76 ML/MIN (>60); Globulin 3.4 g/dL (1.3-3.2); Glucose 121 mg/dl (74-100); Potassium 3.3 mmoL/L (3.5-5.1); Sodium 139 mmol/L (136-145); Total Protein,Serum 7.8 g/dl (6.3-8.2)
[2024-03-23 01:53] LABS: Lymphocytes % 28 % (10-50); Monocytes % 2 % (2-9); Myelocytes % 1 (0-1); Neutrophils % 68 % (42-76); Total Cells Counted 100
[2024-03-23 01:54] LABS: Platelet Estimate Slight Increase; RBC Morphology Normal
[2024-03-23 01:59] LABS: Coronavirus 19, PCR Not Detected (NotDetected); Influenza A, PCR Not Detected (NotDetected); Influenza B, PCR Not Detected (NotDetected); Respiratory Syncytial Virus Not Detected (NotDetected)
[2024-03-23 03:18] LABS: Human Rhinovirus Detected (NotDetected)
[2024-03-23] MEDS: AZITHROMYCIN 250MG TABLET 500 MG PO (03:49)
--- NOTE | 2024-03-23 06:03 | PC.NURSE ---
IV removed. Catheter tip intact. Bleeding controlled.
[2024-03-23 12:35] LABS: HIV Combo NEGATIVE (Negative)
[2024-03-24 05:08] LABS: HCV Ab Non Reactive (Non Reactive)
== END 2024-03-23 06:26 | disposition left against medical advice (07) ==
PROVIDERS: Emergency Provider Emergency Medicine; PCP Family Medicine
DX: J96.21 Acute and chronic respiratory failure with hypoxia (principal); J44.1 Chronic obstructive pulmonary disease with (acute) exacerbation; R50.9 Fever, unspecified; R53.1 Weakness; R05.9 Cough, unspecified
CPT/HCPCS: 71045; 80053; 82803; 85007; 85025; 85027; 86803; 87389; 87631; 93005; 96365; 96374; 99291; J2919; J3475; J7620

== ENCOUNTER 2024-03-27 16:59 | Observation (INO) | payer BC, SELFPAY ==
[2024-03-27] VITALS (12 sets, daily range): BP systolic 119–173; BP diastolic 66–101; PULSE 84–111; RESP 18–26; TEMP 36.8–37; O2SAT 92–97; BMI 13.9; BMI 13.2
--- NOTE | 2024-03-27 17:19 | ECG_ITS ---
APPROVED REPORT Exam: Resting ECG HR:98 bpm ECG Measurements Heart Rate 98 AXES ID 131 P 84 QRSd 76 QRS 74 QT 319 T 69 QTc 374 Conclusion SINUS RHYTHM RIGHT ATRIAL ENLARGEMENT [0.3mV P-WAVE] No acute STEMI Electronically signed by : ANU SOSA, 03/28/2024 00:10:15
--- NOTE | 2024-03-27 17:42 | ED_ITS ---
Discharge Plan Disposition Patient Disposition: Admitted Clinical Impressions Clinical Impression: COPD exacerbation Discharge ED Provider: Gini Castillo General Adult HPI <Jaun Lim ([facility]), CHIEF ARCHITECT - Last Filed: 03/27/24 18:55> General Chief complaint: Shortness of Breath/Dyspnea Stated complaint: low O2, SOA Time Seen by Provider: 03/27/24 17:37 Mode of Arrival: Wheelchair Source of Information: Patient Limitations: No Limitations Description of Symptoms (Recalled from ER Triage Doc. by RN): pt presents to ED with c/o shortness of air, low oxygen saturation. pt reports symptoms began saturday but has gotten worse over the week. pt reports that she does have oxygen at home and only uses it when she needs it but states that she has been using it more lately. History of Present Illness HPI narrative: 64-year-old female presents for shortness of air, low oxygen saturation patient states 69% at home. Patient states symptoms started Saturday she was seen in the ER and now is out of medication and feeling worse. Patient states she has home O2 but does not use it unless she is sick. Related Data Home Medications ?Medication ?Instructions ?Recorded ?Confirmed albuterol sulfate 90 mcg/actuation 2 puff inhalation Q4RT 03/27/24 03/27/24 aerosol inhaler fluticasone fur. 100 mcg-umeclid 1 inh inhalation DAILY 03/27/24 03/27/24 62.5 mcg-vilant 25 mcg inhalat.powder (Trelegy Ellipta) hydrocodone 10 mg-acetaminophen 1 tab PO Q4HP PRN Pain (Scale 03/27/24 03/27/24 325 mg tablet Score 4-6) losartan 50 mg tablet 50 mg PO DAILY 03/27/24 03/27/24 rosuvastatin 10 mg tablet 10 mg PO DAILY 03/27/24 03/27/24 Previous Rx's ?Medication ?Instructions ?Recorded cefdinir 300 mg capsule 300 mg PO BID 10 days #20 caps 03/28/22 ipratropium 0.5 mg-albuterol 3 mg 3 ml inhalation Q4H PRN wheezing 10/22/22 (2.5 mg base)/3 mL nebulization #90 mL soln levofloxacin 750 mg tablet 750 mg PO DAILY 7 days #7 tabs 10/22/22 prednisone 50 mg tablet 50 mg PO DAILY 5 days #5 tabs 10/22/22 azithromycin 250 mg tablet See Rx Instructions PO .COMPLEX #6 03/23/24 tabs prednisone 50 mg tablet 50 mg PO DAILY 5 days #5 tabs 03/23/24 Allergies Allergy/AdvReac Type Severity Reaction Status Date / Time No Known Allergies Allergy Unverified 03/19/17 14:28 PFSH <Juan Lim ([facility]), CHIEF ARCHITECT - Last Filed: 03/27/24 18:55> PFS Disclaimer: The information contained in this section may have been updated after the patient was seen, as this information can be updated by other users. Medical History (Updated 03/27/24 @ 21:33 by Godfrey Fernández RN) HTN (hypertension) HLD (hyperlipidemia) COPD (chronic obstructive pulmonary disease) Surgical History (Updated 03/27/24 @ 21:33 by Godfrey Fernández RN) H/O neck surgery Previous back surgery Social History (Reviewed 03/27/24 @ 18:50 by Juan GarzaNEW [facility] CHIEF ARCHITECT) Smoking Status: Current every day smoker alcohol intake: former current occupational status: employed Travel in the last 8 weeks: None Have you lived/traveled outside US in past 30 days?: No Contact w/someone who lives/traveled outside US past 30 days?: No Exposure to someone with infectious disease in past 14 days?: No Do you have a fever (greater than 100.4 F or 38 C)?: No Have you tested positive for COVID-19: No Exposed to someone with COVID-19 in past 14 days?: No Do you have a sore throat?: No Do you have a cough?: No Do you have any weakness?: No Do you have any diarrhea?: No Are you experiencing any unusual bleeding?: No Do you have any muscle aches/pain?: No Do you have any abdominal pain?: No Are you experiencing loss of taste or smell?: No Other Medical History Have you received the Flu Vaccine for this season: Yes Have you received the Pneumonia Vaccine: No <Juan [facility]zaNEW [facility] CHIEF ARCHITECT - Last Filed: 03/27/24 18:55> ROS Obtained: Yes Systems reviewed as appropriate & no additional complaints except as documented Physical Exam <Juan Lim ([facility]), CHIEF ARCHITECT - Last Filed: 03/27/24 18:55> General General appearance: alert, in no apparent distress and cachectic ENT ENT exam: Present normal exam Respiratory Respiratory exam: Present wheezes Cardiovascular Cardiovascular exam: Present regular rate and normal rhythm Neurological Exam Neurological exam: Present alert and oriented X3 Skin Skin exam: Present warm and intact Lymphatic Lymphatic Findings: no adenopathy Medical Decision Making <Juan Lim ([facility]), CHIEF ARCHITECT - Last Filed: 03/27/24 18:55> Medical Records Medical records reviewed: Yes I reviewed the patient's medical records. Screening: Per USPSTF and CDC recommendations, given the prevalence of disease in our region, it is our hospital?s policy to screen for HIV and viral Hepatitis for all patients aged 18 and over and those with ongoing risk factors. Marcus Inquiry Pt receiving controlled substance: No Vital Signs: 03/27/24 17:15 03/27/24 17:25 03/27/24 17:30 Temperature 98.4 F Temperature Source Oral Pulse Rate 111 H 110 H Pulse Rate [Left Radial] 106 H Respiratory Rate 18 20 26 H Blood Pressure 146/101 H 138/76 Blood Pressure [Right Arm] 173/84 H Blood Pressure Mean 115 97 Blood Pressure Mean [Right Arm] 113 Blood Pressure Source [Right Arm] 02 Sat by Pulse Oximetry 93 L 92 L 95 Oxygen Delivery Method Nasal Cannula Oxygen Flow Rate (LPM) 3 03/27/24 17:30 03/27/24 17:35 03/27/24 17:40 Temperature Temperature Source Pulse Rate 103 H 100 H 107 H Pulse Rate [Left Radial] Respiratory Rate 20 Blood Pressure 129/74 142/66 H 121/77 Blood Pressure [Right Arm] Blood Pressure Mean 92 95 87 Blood Pressure Mean [Right Arm] Blood Pressure Source [Right Arm] 02 Sat by Pulse Oximetry 95 95 96 Oxygen Delivery Method Oxygen Flow Rate (LPM) 03/27/24 17:45 03/27/24 18:00 03/27/24 18:05 Temperature Temperature Source Pulse Rate 101 H 100 H 97 H Pulse Rate [Left Radial] Respiratory Rate Blood Pressure 125/68 129/70 128/67 Blood Pressure [Right Arm] Blood Pressure Mean 86 100 87 Blood Pressure Mean [Right Arm] Blood Pressure Source [Right Arm] 02 Sat by Pulse Oximetry 92 L 93 L 94 L Oxygen Delivery Method Oxygen Flow Rate (LPM) 03/27/24 18:10 03/27/24 18:15 03/27/24 19:58 Temperature 98.2 F Temperature Source Oral Pulse Rate 94 H 90 84 Pulse Rate [Left Radial] Respiratory Rate 18 Blood Pressure 126/68 130/67 146/67 H Blood Pressure [Right Arm] Blood Pressure Mean 89 91 Blood Pressure Mean [Right Arm] Blood Pressure Source [Right Arm] 02 Sat by Pulse Oximetry 96 96 Oxygen Delivery Method Nasal Cannula Oxygen Flow Rate (LPM) 3.5 03/27/24 20:45 Temperature 98.6 F Temperature Source Oral Pulse Rate Pulse Rate [Left Radial] 94 H Respiratory Rate 20 Blood Pressure Blood Pressure [Right Arm] 119/71 Blood Pressure Mean Blood Pressure Mean [Right Arm] 87 Blood Pressure Source [Right Arm] Automatic Cuff 02 Sat by Pulse Oximetry 97 Oxygen Delivery Method Nasal Cannula Oxygen Flow Rate (LPM) 4 Lab Data Lab results reviewed: Yes I reviewed the patient's lab results. Lab Results 03/27/24 17:28: WBC 23.7 H*, RBC 4.47, Hgb 13.2, Hct 41.3, MCV 92.4, MCH 29.5, MCHC 32.0, RDW 13.3, Plt Count 476 H, MPV 9.4, Neut % (Auto) 95.6 H, Lymph % (Auto) 3.1 L, Clay % (Auto) 0.6 L, Eos % (Auto) 0.0 L, Baso % (Auto) 0.2, Neut # (Auto) 22.6 H, Lymph # (Auto) 0.7, Clay # (Auto) 0.2, Eos # (Auto) 0.0, Baso # (Auto) 0.0, Total Counted 100, Neutrophils % (Manual) 92 H, Band Neutrophils % 1.0, Lymphocytes % (Manual) 7 L, Platelet Estimate Slight increase, Hypochromasia 1+, Sodium 136, Potassium 4.3, Chloride 100, Carbon Dioxide 34 H, Anion Gap 6.3, BUN 29 H, Creatinine 0.50 L, Estimated Creat Clear 30, Estimated GFR 124, Est GFR ( Amer) 150, Glucose 156 H, Calcium 9.4, Total Bilirubin 0.3, AST 29, ALT 23, Alkaline Phosphatase 112, C-Reactive Protein 27.2 H, Total Protein 6.6, Albumin 3.6, Globulin 3.0, Albumin/Globulin Ratio 1.2, HIV Ag/Ab Combo Qual Negative 03/27/24 17:28 03/27/24 17:28 Orders (Tests/Meds): ED MEDICATIONS Generic Name Dose Route Start Last Admin Trade Name Freq PRN Reason Stop Dose Admin Acetaminophen 650 mg 03/27/24 19:48 Acetaminophen 325mg Tab PO 04/26/24 19:47 Q4HP PRN Fever or Mild Pain (1-3) Enoxaparin Sodium 40 mg 03/28/24 09:00 Enoxaparin 40mg/0.4ml Syringe SUBCUT 04/27/24 08:59 DAILY JESSICA Azithromycin 500 mg/ Sodium 250 mls @ 250 mls/hr 03/28/24 20:45 Chloride IV 04/07/24 20:44 Q24H JESSICA Ceftriaxone Sodium 1 gm/ 50 mls @ 100 mls/hr 03/28/24 20:45 Sodium Chloride IV 04/07/24 20:44 Q24H JESSICA Ketorolac Tromethamine 15 mg 03/27/24 20:44 Ketorolac 30mg/Ml Vial IV 04/01/24 20:43 Q6HP PRN Moderate to Severe Pain (4-10) Methylprednisolone Sodium Succinate 40 mg 03/28/24 20:45 Methylprednisolone Sod Succ 40mg Vial IV 04/27/24 20:44 Q12H JESSICA Nicotine 21 mg 03/27/24 19:48 03/27/24 21:59 Nicotine 21mg/24hr Patch TD 04/26/24 19:47 21 mg DAILYP PRN Administration Nicotine Cravings Ondansetron HCl 4 mg 03/27/24 19:48 Ondansetron 4mg/2ml Vial IV 04/26/24 19:47 Q8HP PRN Nausea Pantoprazole Sodium 40 mg 03/27/24 21:00 03/27/24 21:59 Pantoprazole 40mg Tablet PO 04/26/24 20:59 40 mg HS JESSICA Administration Discontinued Medications Generic Name Dose Route Start Last Admin Trade Name Freq PRN Reason Stop Dose Admin Ceftriaxone Sodium 2 gm/ 100 mls @ 200 mls/hr 03/27/24 18:38 03/27/24 19:23 Sodium Chloride IV 03/27/24 19:07 200 mls/hr ONCE ONE Administration Azithromycin 500 mg/ Sodium 250 mls @ 250 mls/hr 03/27/24 18:38 03/27/24 19:25 Chloride IV 03/27/24 18:39 250 mls/hr ONCE ONE Administration Ceftriaxone Sodium 1 gm/ 50 mls @ 100 mls/hr 03/27/24 20:45 Sodium Chloride IV 04/06/24 20:44 Q24H JESSICA Methylprednisolone Sodium Succinate 125 mg 03/27/24 18:38 03/27/24 19:23 Methylprednisolone Sod Succ 125mg Vial IV 03/27/24 18:39 125 mg ONCE ONE Administration ORDERS Category Date Time Status CT chest wo con Stat Cat Scan 03/27/24 18:44 Completed Chest XR 2 view (NOT portable) [XR chest 2V] Stat Exams 03/27/24 17:42 Completed CBC Man Diff [Complete Blood Count Man Dif] Stat Lab 03/27/24 17:28 Completed CMP [Comprehensive Metabolic Panel] Stat Lab 03/27/24 17:28 Completed CRP [C-Reactive Protein] Stat Lab 03/27/24 17:28 Completed HIV Combo Stat Lab 03/27/24 17:28 Completed Hep C Ab with Reflex to RNA Stat Lab 03/27/24 17:28 Received Blood Culture Stat Micro 03/27/24 18:57 Ordered Physician Consults Physician Consulted: Mitchell Time: 18:51 Reason -: Admission Medical Decision Narrative: In summary patient is a 64-year-old female who presents to the emergency department for evaluation of shortness of breath. Patient is hemodynamically stable upon arrival, afebrile. Wheezing noted. Differential diagnosis includes COPD ex, pneumonia. Initial workup will be conducted with abnormal chest x-ray, elevated white count. Initial inventions include chest x-ray, CT, labs. Initial workup reviewed by wi labs, chest x-ray, chest CT. Upon repeat evaluation patient continues to have shortness of breath with abnormal chest x- ray and need for oxygen. Given this patient admitted for pneumonia with possible mass. I informally interpreted patient's chest x-ray -pneumonia, questionable mass <Gini Castillo, DO - Last Filed: 03/27/24 23:24> Vital Signs: 03/27/24 17:15 03/27/24 17:25 03/27/24 17:30 Temperature 98.4 F Temperature Source Oral Pulse Rate 111 H 110 H Pulse Rate [Left Radial] 106 H Respiratory Rate 18 20 26 H Blood Pressure 146/101 H 138/76 Blood Pressure [Right Arm] 173/84 H Blood Pressure Mean 115 97 Blood Pressure Mean [Right Arm] 113 Blood Pressure Source [Right Arm] 02 Sat by Pulse Oximetry 93 L 92 L 95 Oxygen Delivery Method Nasal Cannula Oxygen Flow Rate (LPM) 3 03/27/24 17:30 03/27/24 17:35 03/27/24 17:40 Temperature Temperature Source Pulse Rate 103 H 100 H 107 H Pulse Rate [Left Radial] Respiratory Rate 20 Blood Pressure 129/74 142/66 H 121/77 Blood Pressure [Right Arm] Blood Pressure Mean 92 95 87 Blood Pressure Mean [Right Arm] Blood Pressure Source [Right Arm] 02 Sat by Pulse Oximetry 95 95 96 Oxygen Delivery Method Oxygen Flow Rate (LPM) 03/27/24 17:45 03/27/24 18:00 03/27/24 18:05 Temperature Temperature Source Pulse Rate 101 H 100 H 97 H Pulse Rate [Left Radial] Respiratory Rate Blood Pressure 125/68 129/70 128/67 Blood Pressure [Right Arm] Blood Pressure Mean 86 100 87 Blood Pressure Mean [Right Arm] Blood Pressure Source [Right Arm] 02 Sat by Pulse Oximetry 92 L 93 L 94 L Oxygen Delivery Method Oxygen Flow Rate (LPM) 03/27/24 18:10 03/27/24 18:15 03/27/24 19:58 Temperature 98.2 F Temperature Source Oral Pulse Rate 94 H 90 84 Pulse Rate [Left Radial] Respiratory Rate 18 Blood Pressure 126/68 130/67 146/67 H Blood Pressure [Right Arm] Blood Pressure Mean 89 91 Blood Pressure Mean [Right Arm] Blood Pressure Source [Right Arm] 02 Sat by Pulse Oximetry 96 96 Oxygen Delivery Method Nasal Cannula Oxygen Flow Rate (LPM) 3.5 03/27/24 20:45 Temperature 98.6 F Temperature Source Oral Pulse Rate Pulse Rate [Left Radial] 94 H Respiratory Rate 20 Blood Pressure Blood Pressure [Right Arm] 119/71 Blood Pressure Mean Blood Pressure Mean [Right Arm] 87 Blood Pressure Source [Right Arm] Automatic Cuff 02 Sat by Pulse Oximetry 97 Oxygen Delivery Method Nasal Cannula Oxygen Flow Rate (LPM) 4 Lab Data Lab Results 03/27/24 17:28: WBC 23.7 H*, RBC 4.47, Hgb 13.2, Hct 41.3, MCV 92.4, MCH 29.5, MCHC 32.0, RDW 13.3, Plt Count 476 H, MPV 9.4, Neut % (Auto) 95.6 H, Lymph % (Auto) 3.1 L, Clay % (Auto) 0.6 L, Eos % (Auto) 0.0 L, Baso % (Auto) 0.2, Neut # (Auto) 22.6 H, Lymph # (Auto) 0.7, Clay # (Auto) 0.2, Eos # (Auto) 0.0, Baso # (Auto) 0.0, Total Counted 100, Neutrophils % (Manual) 92 H, Band Neutrophils % 1.0, Lymphocytes % (Manual) 7 L, Platelet Estimate Slight increase, Hypochromasia 1+, Sodium 136, Potassium 4.3, Chloride 100, Carbon Dioxide 34 H, Anion Gap 6.3, BUN 29 H, Creatinine 0.50 L, Estimated Creat Clear 30, Estimated GFR 124, Est GFR ( Amer) 150, Glucose 156 H, Calcium 9.4, Total Bilirubin 0.3, AST 29, ALT 23, Alkaline Phosphatase 112, C-Reactive Protein 27.2 H, Total Protein 6.6, Albumin 3.6, Globulin 3.0, Albumin/Globulin Ratio 1.2, HIV Ag/Ab Combo Qual Negative Orders (Tests/Meds): ED MEDICATIONS Generic Name Dose Route Start Last Admin Trade Name Freq PRN Reason Stop Dose Admin Acetaminophen 650 mg 03/27/24 19:48 Acetaminophen 325mg Tab PO 04/26/24 19:47 Q4HP PRN Fever or Mild Pain (1-3) Enoxaparin Sodium 40 mg 03/28/24 09:00 Enoxaparin 40mg/0.4ml Syringe SUBCUT 04/27/24 08:59 DAILY JESSICA Azithromycin 500 mg/ Sodium 250 mls @ 250 mls/hr 03/28/24 20:45 Chloride IV 04/07/24 20:44 Q24H JESSICA Ceftriaxone Sodium 1 gm/ 50 mls @ 100 mls/hr 03/28/24 20:45 Sodium Chloride IV 04/07/24 20:44 Q24H JESSICA Ketorolac Tromethamine 15 mg 03/27/24 20:44 Ketorolac 30mg/Ml Vial IV 04/01/24 20:43 Q6HP PRN Moderate to Severe Pain (4-10) Methylprednisolone Sodium Succinate 40 mg 03/28/24 20:45 Methylprednisolone Sod Succ 40mg Vial IV 04/27/24 20:44 Q12H JESSICA Nicotine 21 mg 03/27/24 19:48 03/27/24 21:59 Nicotine 21mg/24hr Patch TD 04/26/24 19:47 21 mg DAILYP PRN Administration Nicotine Cravings Ondansetron HCl 4 mg 03/27/24 19:48 Ondansetron 4mg/2ml Vial IV 04/26/24 19:47 Q8HP PRN Nausea Pantoprazole Sodium 40 mg 03/27/24 21:00 03/27/24 21:59 Pantoprazole 40mg Tablet PO 04/26/24 20:59 40 mg HS JESSICA Administration Discontinued Medications Generic Name Dose Route Start Last Admin Trade Name Freq PRN Reason Stop Dose Admin Ceftriaxone Sodium 2 gm/ 100 mls @ 200 mls/hr 03/27/24 18:38 03/27/24 19:23 Sodium Chloride IV 03/27/24 19:07 200 mls/hr ONCE ONE Administration Azithromycin 500 mg/ Sodium 250 mls @ 250 mls/hr 03/27/24 18:38 03/27/24 19:25 Chloride IV 03/27/24 18:39 250 mls/hr ONCE ONE Administration Ceftriaxone Sodium 1 gm/ 50 mls @ 100 mls/hr 03/27/24 20:45 Sodium Chloride IV 04/06/24 20:44 Q24H JESSICA Methylprednisolone Sodium Succinate 125 mg 03/27/24 18:38 03/27/24 19:23 Methylprednisolone Sod Succ 125mg Vial IV 03/27/24 18:39 125 mg ONCE ONE Administration ORDERS Category Date Time Status CT chest wo con Stat Cat Scan 03/27/24 18:44 Completed Chest XR 2 view (NOT portable) [XR chest 2V] Stat Exams 03/27/24 17:42 Completed CBC Man Diff [Complete Blood Count Man Dif] Stat Lab 03/27/24 17:28 Completed CMP [Comprehensive Metabolic Panel] Stat Lab 03/27/24 17:28 Completed CRP [C-Reactive Protein] Stat Lab 03/27/24 17:28 Completed HIV Combo Stat Lab 03/27/24 17:28 Completed Hep C Ab with Reflex to RNA Stat Lab 03/27/24 17:28 Received Blood Culture Stat Micro 03/27/24 18:57 Ordered ECG Data Tracing #1: I reviewed this ECG and interpreted as documented below: Normal sinus rhythm with a ventricular rate of 98 bpm. Right atrial enlargement. No acute STEMI. Normal intervals. ECG initial impression date: 03/27/24 ECG initial impression time: 17:28 Medical Decision Narrative: In summary patient is a 64-year-old female who presents to the emergency department for evaluation of shortness of breath. Patient is hemodynamically stable upon arrival, afebrile. Wheezing noted. Differential diagnosis includes COPD ex, pneumonia. Initial workup will be conducted with abnormal chest x-ray, elevated white count. Initial inventions include chest x-ray, CT, labs. Initial workup reviewed by wi labs, chest x-ray, chest CT. Upon repeat evaluation patient continues to have shortness of breath with abnormal chest x- ray and need for oxygen. Given this patient admitted for pneumonia with possible mass. I informally interpreted patient's chest x-ray -pneumonia, questionable mass I was consulted by the SATISH, and we discussed the complexity of the problems being addressed. I approved the treatment and management plan for this patient's care in the emergency department, thus performing a substantive portion of the medical decision making. Patient arrives with continued shortness of breath, cough, hypoxic respiratory failure despite being evaluated here 03/23/2024 and prescribed antibiotics and steroids. I feel she has failed outpatient management of pneumonia, respiratory failure, COPD. She continues to be tachycardic, hypoxic, tachypneic. Workup continues to show leukocytosis, though this could be skewed by steroid use. Chest x-ray concerning for worsening infiltrates. Given this, interactive discussion was had with the hospitalist and the patient was admitted in stable condition. Prior to admission, she was given DuoNeb, methylprednisolone, Rocephin, azithromycin. Gini Castillo, DO Critical Care <Juan Lim ([facility]), CHIEF ARCHITECT - Last Filed: 03/27/24 18:55> Critical Care Time Critical Care Time: No
--- NOTE | 2024-03-27 17:42 | XR_ITS ---
PROCEDURE INFORMATION: Exam: XR Chest Exam date and time: 03/27/2024 5:41 PM Age: 64 years old Clinical indication: Shortness of breath; Additional info: SOA TECHNIQUE: Imaging protocol: Radiologic exam of the chest. Views: 2 views. COMPARISON: CR XR CHEST PORTABLE 03/23/2024 1:23 AM FINDINGS: Lungs: Emphysema. No consolidation. Redemonstrated areas of pleural-parenchymal scarring. Pleural spaces: No pleural effusion. No pneumothorax. Heart/Mediastinum: No cardiomegaly. Calcified atherosclerotic changes of the thoracic aorta. Bones/joints: Cervical fusion hardware. IMPRESSION: No acute findings.
[2024-03-27 17:49] LABS: MANUAL DIFFERENTIAL MANUAL DIFFERENTIAL (MANUAL DIFF)
[2024-03-27 18:03] LABS: Basophils % 0.2 % (0.1-2.0); Hematocrit 41.3 % (37.0-47.0); Hemoglobin 13.2 g/dL (12.2-16.2); Lymphocytes # 0.7 K/mm3 (0.7-4.5); Lymphocytes % 3.1 % (10-50); Mean Corpuscular Hemoglobin 29.5 pg (27.0-31.2); Mean Corpuscular Volume 92.4 fl (81-99); Mean Platelet Volume 9.4 fl (7.4-10.4); Monocytes # 0.2 K/mm3 (0.1-1.0); Monocytes % 0.6 % (1.7-9.3); Neutrophils # 22.6 K/mm3 (1.8-7.8); Neutrophils % 95.6 % (37.0-80.0); Platelet Count 476 K/mm3 (142-424); Red Blood Count 4.47 M/mm3 (4.20-5.40); Red Cell Distribution Width 13.3 % (11.5-17.5); White Blood Count 23.7 K/mm3 (4.8-10.8)
[2024-03-27 18:05] LABS: Albumin Level 3.6 g/dl (3.5-5.0); Chloride 100 mmol/L (98-107); Potassium 4.3 mmoL/L (3.5-5.1); Sodium 136 mmol/L (136-145)
[2024-03-27 18:08] LABS: Alanine Aminotransferase 23 U/L (12-78); Albumin/Globulin Ratio 1.2 (1.1-1.8); Alkaline Phosphatase 112 U/L (38-126); Anion Gap 6.3 mEq/L (5-15); Aspartate Amino Transferase 29 U/L (14-36); Bilirubin,Total 0.3 mg/dl (0.2-1.3); Blood Urea Nitrogen 29 mg/dl (7-17); Carbon Dioxide 34 mmol/L (22.0-30.0); Creatinine Clearance Estimated 30 mL/min (50-200); Estimated Glomerular Filt Rate 124 ml/min (>60); GFR (African American) 150 ML/MIN (>60); Total Protein,Serum 6.6 g/dl (6.3-8.2)
[2024-03-27 18:09] LABS: Calcium 9.4 mg/dl (8.4-10.2); Glucose 156 mg/dl (74-100)
--- NOTE | 2024-03-27 18:44 | CT_ITS ---
PROCEDURE INFORMATION: Exam: CT Chest Without Contrast; Diagnostic Exam date and time: 03/27/2024 7:07 PM Age: 64 years old Clinical indication: Shortness of breath; Additional info: SOA TECHNIQUE: Imaging protocol: Diagnostic computed tomography of the chest without contrast. Radiation optimization: All CT scans at this facility use at least one of these dose optimization techniques: automated exposure control; mA and/or kV adjustment per patient size (includes targeted exams where dose is matched to clinical indication); or iterative reconstruction. COMPARISON: CT LUNG SCREENING 09/02/2023 1:20 PM FINDINGS: Lungs: Emphysema. Stable areas of pleural-parenchymal scarring and nodular opacity within the right lower lobe superior segment. Tree-in-bud and centrilobular ground-glass opacities within the bilateral mid to lower lungs. Mild bronchial wall thickening. Minimal scattered mucous plugging. Calcified granulomas. Pleural spaces: No pneumothorax. No pleural effusion. Heart: No cardiomegaly. Minimal pericardial effusion/thickening. Coronary arteries: Coronary artery calcifications. Lymph nodes: Stable mildly prominent lower paratracheal lymph nodes. Vasculature: Atherosclerosis. No aortic aneurysm. Spleen: Calcified granulomas. Bones/joints: Cervical fusion hardware. No acute fracture. Degenerative changes. Soft tissues: Unremarkable. IMPRESSION: 1. Tree-in-bud and centrilobular ground-glass opacities within the bilateral mid to lower lungs consistent with an infectious or inflammatory bronchiolitis. 2. COPD. Stable areas of pleural-parenchymal scarring and a nodular opacity within the right lower lobe superior segment. COMMENTS: The presence of pulmonary emphysema on CT is an independent risk factor for lung cancer. In the absence of a history or active diagnosis of lung cancer, it is recommended that this patient with emphysema be evaluated for enrollment in a low dose CT lung cancer screening program.
--- NOTE | 2024-03-27 18:54 | PC.NURSE ---
VP CLIENT SERVICES NOTIFIED OF ADMISSION
[2024-03-27 18:55] LABS: Hypochromasia 1+; Lymphocytes % 7 % (10-50); Neutrophils % 92 % (42-76); Platelet Estimate Slight Increase; Total Cells Counted 100
[2024-03-27] MEDS: METHYLPREDNISOLONE SOD SUCC 125MG VIAL 125 MG IV (19:23)
[2024-03-27] MEDS: CEFTRIAXONE SODIUM 2 GM in 0.9 % SODIUM CHLORIDE 100 ML IV (19:23)
[2024-03-27 19:24] LABS: C-Reactive Protein 27.2 mg/L (0-4)
[2024-03-27] MEDS: AZITHROMYCIN 500 MG in 0.9 % SODIUM CHLORIDE 250 ML 250 MG IV (19:25)
--- NOTE | 2024-03-27 19:51 | PC.NURSE ---
report called to PRETTY navarro
[2024-03-27 20:19] LABS: HIV Combo NEGATIVE (Negative)
[2024-03-27] MEDS: NICOTINE 21MG/24HR PATCH 21 MG TD (21:59)
[2024-03-27] MEDS: PANTOPRAZOLE 40MG TABLET 40 MG PO (21:59)
[2024-03-27 22:11] LABS: Coronavirus 19, PCR Not Detected (NotDetected); Human Rhinovirus Not Detected (NotDetected); Influenza A, PCR Not Detected (NotDetected); Influenza B, PCR Not Detected (NotDetected); Respiratory Syncytial Virus Not Detected (NotDetected)
[2024-03-28] VITALS (7 sets, daily range): BP systolic 130–158; BP diastolic 61–72; PULSE 73–86; RESP 16–17; TEMP 36.7–37.1; O2SAT 87–97; BMI 13.2
--- NOTE | 2024-03-28 01:07 | P.HP_ITS ---
History of Present Illness *Admission Date: 03/27/24 *Reason for visit:: COPD exacerbation with hypoxia and dyspnea *History of present illness: This 64-year-old extremely low body weight -[place] female comes to the emergency room with her family having difficulty breathing. Patient is known is a very long-term smoker about a pack a day. Per family her oxygen saturations can be in the 70s but she has a job at [employer] and continues to work. Patient noted that her symptoms worsened on Saturday and have progressively gotten more to where she is having difficulty breathing. She does have oxygen at home that she notes only uses sometimes are maybe when she tries to sleep every now and then. Was noted she was in the emergency room a few days ago but left AGAINST MEDICAL ADVICE was given prescriptions for antibiotic. But since these medicines have ended she now is worse again. Noting an increase rate of visiting over the last year to the emergency room for respiratory issues. Also noting she had gotten a nebulizer in March that she has used a couple of times but says she does not notice that it gives her any relief. As far as the patient's weight unsure of if she is losing weight. Could not find any records with a wait listed. Patient noted for having the flu vaccine but never having the pneumococcal vaccine. Patient slightly tachycardic into the 1 teens respiratory rate variable from 18-26 respirations per minute in the emergency room. Patient does not have a fever at this time and denies having 1. Patient requiring between 3 to 4 L nasal after treatment to keep saturations greater than 93%. Noting back in old records the last 3 CBCs show that she has a white count in the 20,000. They were running in the 14,000's before then. Emergency room note shows that the patient was wheezing but on my exam after she had received steroids and breathing treatments was moving air fairly well. No wheezing was noted during that time of exam. After consulting with the ER provider going over the patient's records including her labs and chest x-ray. Plus then CT scan of the chest agree that admission for antibiotics at this point in time due to the sudden increase in oxygen needs is needed. She is noted to having an abnormal lung scan. As following up with that per the patient this area has not expanded in size.. Patient's past medical history includes several back surgeries of the lower and neck. Also approximately 6 months ago MRSA infection of the leg. And did have a meningioma in the brain removed in 2015. She notes chronic back pain. [facility] Disclaimer: The information contained in this section may have been updated after the patient was seen, as this information can be updated by other users. Medical History (Updated 03/28/24 @ 01:43 by Angel Christy APRN) HTN (hypertension) HLD (hyperlipidemia) COPD (chronic obstructive pulmonary disease) Surgical History (Updated 03/27/24 @ 21:33 by Godfrey Fernández RN) H/O neck surgery Previous back surgery Social History (Reviewed 03/27/24 @ 18:50 by Juan Lim ([facility] [employer] HEAD[employer]) Smoking Status: Current every day smoker alcohol intake: former current occupational status: employed Travel in the last 8 weeks: None Have you lived/traveled outside [place] in past 30 days?: No Contact w/someone who lives/traveled outside US past 30 days?: No Exposure to someone with infectious disease in past 14 days?: No Do you have a fever (greater than 100.4 F or 38 C)?: No Have you tested positive for COVID-19: No Exposed to someone with COVID-19 in past 14 days?: No Do you have a sore throat?: No Do you have a cough?: No Do you have any weakness?: No Do you have any diarrhea?: No Are you experiencing any unusual bleeding?: No Do you have any muscle aches/pain?: No Do you have any abdominal pain?: No Are you experiencing loss of taste or smell?: No Other Medical History Have you received the Flu Vaccine for this season: Yes Have you received the Pneumonia Vaccine: Yes Review of Systems Review of Systems Review of systems:: pertinent systems reviewed and negative unless documented below Constitutional Constitutional: Reports as per HPI, Reports anorexia, Reports body ache(s) and Reports poor appetite Comments: Patient has no appetite only 1 bottle of Ensure in the last 24-hour Eyes Eyes: Reports as per HPI ENT Ears, Nose, Mouth, and Throat: Reports as per HPI *Cardiovascular Cardiovascular: Reports as per HPI, Reports dyspnea and Reports dyspnea on exertion Comments: Patient denies chest pain *Respiratory Respiratory: Reports as per HPI, Reports dyspnea, Reports dyspnea on exertion and Reports wheezing *Gastrointestinal Gastrointestinal: Reports as per HPI Comments: Patient denies nausea, denies abdominal pain *Genitourinary Genitourinary: Reports as per HPI Comments: Patient said she had no issues with controlling her urine., Sometimes mild constipation *Musculoskeletal Musculoskeletal: Reports as per HPI Comments: Patient noted for chronic pain long history of back and neck surgery Integumentary/Breasts Skin/Breast: Reports as per HPI *Neurologic Neurologic: Reports as per HPI Psychiatric Psychiatric: Reports as per HPI Endocrine Endocrine: Reports as per HPI Hematologic/Lymphatic Hematologic/Lymphatic: Reports as per HPI Allergic/Immunologic Allergic/Immunologic: Reports as per HPI and Reports wheezing Meds Home Medications and Allergies Home Medications ?Medication ?Instructions ?Recorded ?Confirmed ?Type albuterol sulfate 90 mcg/actuation 2 puff inhalation Q4RT 03/27/24 03/27/24 History aerosol inhaler fluticasone fur. 100 mcg-umeclid 1 inh inhalation DAILY 03/27/24 03/27/24 History 62.5 mcg-vilant 25 mcg inhalat.powder (Trelegy Ellipta) hydrocodone 10 mg-acetaminophen 1 tab PO Q4HP PRN Pain (Scale 03/27/24 03/27/24 History 325 mg tablet Score 4-6) losartan 50 mg tablet 50 mg PO DAILY 03/27/24 03/27/24 History rosuvastatin 10 mg tablet 10 mg PO DAILY 03/27/24 03/27/24 History azithromycin 500 mg tablet 500 mg PO DAILY 3 days #3 tabs 03/28/24 Rx cefdinir 300 mg capsule 300 mg PO BID 3 days #6 caps 03/28/24 Rx ipratropium 0.5 mg-albuterol 3 mg 3 ml inhalation Q4HP PRN wheezing 03/28/24 Rx (2.5 mg base)/3 mL nebulization #180 mL soln nicotine 21 mg/24 hr daily 21 mg transdermal DAILY #28 ea 03/28/24 Rx transdermal patch prednisone 20 mg tablet 40 mg (2 x 20 mg) PO DAILY 4 days 03/28/24 Rx #8 tabs New Prescriptions to Start Prescriptions: Gonzalo Mcnamara cefdinir Gonzalo Medrano ipratropium-albuterol Gonzalo Medrano nicotine Gonzalo Medrano prednisone Gonzalo Medrano Allergies Allergy/AdvReac Type Severity Reaction Status Date / Time No Known Allergies Allergy Unverified 03/19/17 14:28 Exam Data for Last 24 hours Vital signs and Labs for Last 24 Hours: Temp Pulse Resp BP Pulse Ox O2 Del Method O2 Flow Rate 98.7 F 86 16 158/72 H 93 L Nasal Cannula 4 03/28/24 00:00 03/28/24 00:00 03/28/24 00:00 03/28/24 00:00 03/28/24 00:00 03/28/24 00:00 03/28/24 00:00 Laboratory Results - last 24 hr 03/27/24 17:28: WBC 23.7 H*, RBC 4.47, Hgb 13.2, Hct 41.3, MCV 92.4, MCH 29.5, MCHC 32.0, RDW 13.3, Plt Count 476 H, MPV 9.4, Neut % (Auto) 95.6 H, Lymph % (Auto) 3.1 L, [place] % (Auto) 0.6 L, Eos % (Auto) 0.0 L, Baso % (Auto) 0.2, Neut # (Auto) 22.6 H, Lymph # (Auto) 0.7, [place] # (Auto) 0.2, Eos # (Auto) 0.0, Baso # (Auto) 0.0, Total Counted 100, Neutrophils % (Manual) 92 H, Band Neutrophils % 1.0, Lymphocytes % (Manual) 7 L, Platelet Estimate Slight increase, Hypochromasia 1+, Sodium 136, Potassium 4.3, Chloride 100, Carbon Dioxide 34 H, Anion Gap 6.3, BUN 29 H, Creatinine 0.50 L, Estimated Creat Clear 30, Estimated GFR 124, Est GFR ( Amer) 150, Glucose 156 H, Calcium 9.4, Total Bilirubin 0.3, AST 29, ALT 23, Alkaline Phosphatase 112, C-Reactive Protein 27.2 H, Total Protein 6.6, Albumin 3.6, Globulin 3.0, Albumin/Globulin Ratio 1.2, HIV Ag/Ab Combo Qual Negative 03/27/24 22:01: SARS-CoV-2 (PCR) Not detected, Influenza Type A (PCR) Not detected, Influenza Type B (PCR) Not detected, RSV (PCR) Not detected, Rhinovirus (PCR) Not detected I & O for Last 24 hours: Intake & Output 03/25/24 03/26/24 03/27/24 03/28/24 05:59 05:59 05:59 05:59 Output Total 0 / 0 Balance 0 / 0 Weight 70 lb 1.6 oz Radiology Reports for the Last 24 Hours: Chest x-ray and CT scan shows significant emphysema, abnormal changes to upper right lobe and posterior areas unchanged on the previous 2 CT scan, groundglass appearance of bronchitis apparent Constitutional Constitutional: mild distress, thin, chronically ill appearing and cooperative *Routine HEENT Exam Head: Present normocephalic and atraumatic Eye: Present EOMI, PERRL and normal accommodation ENT: Present mucous membranes moist *Routine Neck Exam Neck: Present supple and tenderness Comments: Tenderness is chronic patient is able to move her neck some but she does not have full range of motion after past surgery Routine Chest/Breast/Axilla Exam Comments: Very thin framed lady there was no tenderness to the chest wall on examination *Routine Respiratory Exam Respiratory: Present prolonged expiratory phase, normal respiratory effort and able to speak in complete sentences Comments: Patient has been treated in the emergency room receiving breathing treatments and steroids.. At this time lung sounds are relatively normal do not hear any wheezing no rhonchi no gurgling. The patient does not have a cough *Routine Cardiovascular Exam Cardiovascular: Present RRR and tachycardia Comments: No edema in lower extremities *Routine Abdominal Exam Abdominal: Present soft and firm Comments: Very thin woman examining her abdomen no organomegaly and noted abdomen is firm no signs of tenderness *Routine Rectal Exam Rectal:: deferred *Routine Genitalia Exam Genitalia:: deferred *Routine Extremities Exam Extremities: Present pulses intact and normal capillary refill Comments: Moves all extremities well no signs of swelling joints have good range of motion Routine Back/Spine/Pelvis Exam Back/Spine: Present vertebral tenderness Comments: Patient is able to sit up move twist on the bed without any difficulty or assistance., Due to the situation in restraints in the emergency room did not stand the patient to walk. Per her history she has no problems standing and walking *Routine Skin Exam Skin: Present intact and warm *Routine Neurological Exam Neurological: Present alert, oriented X3, CN II-XII intact, normal reflexes and normal tone Comments: No neurologic deficits found Routine Psychiatric Exam Psychiatric: Present normal affect, normal thought process, cooperative, good insight and good judgment Comments: Patient does not want to be here but she understands she has to be she knows that she is now sick requiring oxygen Additional findings Additional findings: Per family they gave a history that she still works at [employer] walks around with low O2 saturations but refuses to not go to work. H&P: Result Impressions 1. CO2 exacerbation with a long-term smoker now having oxygen requirement 2. Question bronchitis versus pneumonia. Unsure about the abnormal mass in the right upper lung as it is not gotten any worse. And as per history has not been biopsied Imaging and Cardiology CT scan - chest: Status: image reviewed by me Additional comments: Reviewed last CT scans of the lung comparing them that there was no real new infiltrate noted but groundglass appearance with bronchitis significantly hyperexpanded lungs heart is small and not enlarged Assessment and Plan *Assessment and plan (1) Acute exacerbation of chronic obstructive airways disease: Status: Acute Category: Medical Code(s): J44.1 - Chronic obstructive pulmonary disease with (acute) exacerbation (2) Oxygen dependent: Status: Acute Category: Medical Code(s): Z99.81 - Dependence on supplemental oxygen (3) Nicotine dependence, cigarettes, with unspecified nicotine-induced disorders: Status: Acute Category: Medical Code(s): F17.219 - Nicotine dependence, cigarettes, with unspecified nicotine-induced disorders (4) Elevated white blood cell count: Status: Acute Qualifiers: Leukocytosis type: leukemoid reaction Qualified Code(s): D72.823 - Leukemoid reaction Category: Medical Code(s): D72.829 - Elevated white blood cell count, unspecified (5) BMI < 18.5: Status: Acute Category: Medical Code(s): Z68.1 - Body mass index [BMI] 19.9 or less, adult (6) Anorexia: Status: Acute Category: Medical Code(s): R63.0 - Anorexia Plan Patient presented with shortness of breath. Concern for COPD exacerbation failing outpatient therapy necessitating oxygen. Patient's symptoms not improved in a week. Failed outpatient antibiotics. Case discussed with ER physician, request admission for further management. Medicine agreed to admit. Problems reports as follows: 1. Patient is a long-term smoker who is currently smoking. With sudden exacerbation of her emphysema now requiring oxygen., Question new onset bronchitis or underlying pneumonia. Plan at this time steroids bronchodilators antibiotics, pulmonary consult 2. Nicotine dependency., Patient does not have plans to quit smoking but did want a nicotine patch while in the hospital this has been provided 3. Noting low body weight with decreased oral intake. This also confirmed by family. Patient states last 24 hours did drink a serving of Ensure. 4. Case management. This lady is obviously lived her life the way she wants to she is still working though still having low oxygen sats per family. Question need for follow-up for either failure to thrive but if continue working to provide resources for portable oxygen accumulate or that she may have oxygen when she needs it and possibly continue to work. Rounded on patient after nurse practitioner. Personally examined and interviewed patient. Agree with exam findings and care plan as documented.
--- NOTE | 2024-03-28 04:37 | EXP.EVENT.NO ---
problem nurse called me to see the patient as the patient did not feel anything was being done for her here.. Came in to see the patient she is still on 4 L nasal cannula but is comfortable. Her main concern is that she is going to be charged large amounts of money for hospitalization. She wanted to know what was being done for her explained that on antibiotics and the steroids that she is doing better and is requiring still 4 L of oxygen and will be continuing to do DuoNebs. exam, patient still has a rattling cough. Noting rhonchi and Rales through both the posterior lobes., plan. Last time patient was here she signed out AMA., I have explained to her that over the years of her smoking she has damaged her lungs. That right now she is needing 4 L of nasal cannula, That antibiotics do not work right away. And that continuing breathing treatments and trying to clear her lungs, gone over the effects of her many decades of smoking. She notes that she still works at [employer].. She is able to talk freely except for when she starts to cough. But presently is stable. I have warned her against leaving AMA that I believe she would be back in a very short period of time within less than 2 days. . Also talked about her need for nutrition that her body needed the right amount of calories with the right nutritions to be able to help her to get over this.
[2024-03-28] MEDS: IPRATROPIUM/ALBUTEROL 3 ML NEB IH ×2 (04:56→09:00)
--- NOTE | 2024-03-28 05:17 | PC.NURSE ---
Pt expressed concerns for not wanting to be here. Hospitalist notified and spoke with pt at bedside.
[2024-03-28 07:29] LABS: Basophils % 0.1 % (0.1-2.0); Monocytes # 0.2 K/mm3 (0.1-1.0); Neutrophils # 8.7 K/mm3 (1.8-7.8); Red Cell Distribution Width 13.3 % (11.5-17.5); White Blood Count 10.2 K/mm3 (4.8-10.8)
[2024-03-28 07:30] LABS: Lactate Venous 1.1 mmol/L (0.4-2.0); VBG Base Excess 7.9 mmol/L (-2.4-2.3); VBG HCO3 31.4 mmol/L (23-30); VBG Oxygen Saturation 99.8 % (50-70); VBG PCO2 43.1 mmol/L (35-51); VBG PH 7.48 mmol/L (7.31-7.41); VBG PO2 178.6 mmol/L (28-40); VBG Total CO2 32.7 mmol/L (23-27)
[2024-03-28 07:35] LABS: Hematocrit 34.5 % (37.0-47.0); Lymphocytes # 1.2 K/mm3 (0.7-4.5); Lymphocytes % 11.5 % (10-50); Mean Corpuscular HGB Conc 31.6 g/dL (31.8-35.4); Mean Corpuscular Hemoglobin 28.6 pg (27.0-31.2); Mean Corpuscular Volume 90.6 fl (81-99); Mean Platelet Volume 9.7 fl (7.4-10.4); Monocytes % 2.4 % (1.7-9.3); Neutrophils % 85.4 % (37.0-80.0); Platelet Count 376 K/mm3 (142-424); Red Blood Count 3.81 M/mm3 (4.20-5.40)
[2024-03-28 07:36] LABS: Hemoglobin 10.9 g/dL (12.2-16.2)
[2024-03-28 07:37] LABS: MANUAL DIFFERENTIAL MANUAL DIFFERENTIAL (MANUAL DIFF)
[2024-03-28 07:38] LABS: Albumin Level 3.1 g/dl (3.5-5.0); Chloride 102 mmol/L (98-107); Potassium 4.2 mmoL/L (3.5-5.1); Sodium 134 mmol/L (136-145)
[2024-03-28 07:40] LABS: Blood Urea Nitrogen 31 mg/dl (7-17); Creatinine Clearance Estimated 28 mL/min (50-200); Estimated Glomerular Filt Rate 124 ml/min (>60); GFR (African American) 150 ML/MIN (>60)
[2024-03-28 07:41] LABS: Alanine Aminotransferase 19 U/L (12-78); Albumin/Globulin Ratio 1.2 (1.1-1.8); Alkaline Phosphatase 91 U/L (38-126); Anion Gap 2.2 mEq/L (5-15); Aspartate Amino Transferase 23 U/L (14-36); Bilirubin,Total 0.2 mg/dl (0.2-1.3); Calcium 9.2 mg/dl (8.4-10.2); Carbon Dioxide 34 mmol/L (22.0-30.0); Globulin 2.5 g/dL (1.3-3.2); Glucose 131 mg/dl (74-100); Magnesium 2.3 mg/dl (1.6-2.3); Total Protein,Serum 5.6 g/dl (6.3-8.2)
[2024-03-28] MEDS: guaiFENesin 600 MG TAB.ER.12H PO (09:23)
[2024-03-28] MEDS: IRBESARTAN 75MG TABLET 75 MG PO (09:23)
[2024-03-28 09:51] LABS: Lymphocytes % 11 % (10-50); Monocytes % 1 % (2-9); Neutrophils % 88 % (42-76); RBC Morphology Normal; Total Cells Counted 100
[2024-03-28 09:52] LABS: Platelet Estimate Normal
--- NOTE | 2024-03-28 10:47 | PC.NURSE ---
o2 room air saturation is 87% at rest.
--- NOTE | 2024-03-28 10:48 | P.DS_ITS ---
General Admission date:: 03/27/24 Discharge date: 03/28/24 HPI HPI HPI: This 64-year-old extremely low body weight -[place] female comes to the emergency room with her family having difficulty breathing. Patient is known is a very long-term smoker about a pack a day. Per family her oxygen saturations can be in the 70s but she has a job at [employer] and continues to work. Patient noted that her symptoms worsened on Saturday and have progressively gotten more to where she is having difficulty breathing. She does have oxygen at home that she notes only uses sometimes are maybe when she tries to sleep every now and then. Was noted she was in the emergency room a few days ago but left AGAINST MEDICAL ADVICE was given prescriptions for antibiotic. But since these medicines have ended she now is worse again. Noting an increase rate of visiting over the last year to the emergency room for respiratory issues. Also noting she had gotten a nebulizer in March that she has used a couple of times but says she does not notice that it gives her any relief. As far as the patient's weight unsure of if she is losing weight. Could not find any records with a wait listed. Patient noted for having the flu vaccine but never having the pneumococcal vaccine. Patient slightly tachycardic into the 1 teens respiratory rate variable from 18-26 respirations per minute in the emergency room. Patient does not have a fever at this time and denies having 1. Patient requiring between 3 to 4 L nasal after treatment to keep saturations greater than 93%. Noting back in old records the last 3 CBCs show that she has a white count in the 20,000. They were running in the 14,000's before then. Emergency room note shows that the patient was wheezing but on my exam after she had received steroids and breathing treatments was moving air fairly well. No wheezing was noted during that time of exam. After consulting with the ER provider going over the patient's records including her labs and chest x-ray. Plus then CT scan of the chest agree that admission for antibiotics at this point in time due to the sudden increase in oxygen needs is needed. She is noted to having an abnormal lung scan. As following up with that per the patient this area has not expanded in size.. Patient's past medical history includes several back surgeries of the lower and neck. Also approximately 6 months ago MRSA infection of the leg. And did have a meningioma in the brain removed in 2014. She notes chronic back pain. Hospital Course Hospital Course Hospital Course: 64-year-old female with shortness of breath. Found to have increased oxygen requirement. Failed outpatient therapy for COPD exacerbation. Was admitted to medicine for further management of her COPD exacerbation. Treated with steroids along with nebulizers. Started on supplemental oxygen, 4 L at admission. Weaned to 2 L by morning of discharge. Patient showed improvement with antibiotics and steroids. Did well overnight. Patient is now on stay in the hospital any longer however. Extensive discussion about need for antibiotics, steroids, oxygen. Will transition to cefdinir and azithromycin to complete 5 days total of antibiotics for COPD exacerbation and acute hypoxemic respiratory failure. Will complete 5 days of steroids with prednisone 40 mg daily. Room air saturation on day of discharge 87% at rest. Necessitating 2 L continuous oxygen. Will discharge home to complete therapy as an outpatient. Nebulizer solution ordered. Continue Trelegy 100 inhaler. Nicotine patch to assist in smoking cessation. Recommend following up with pulmonology to establish care for treatment of her COPD. Patient is cachectic, has been losing weight. Likely due to her significant metabolic demands from her severe COPD. Counseled on high-protein diet and no caloric restriction for ample daily calories given her metabolic demands. Patient also noted to have scarring/lesions on CT. They appear stable on CT compared to 6 months ago. Needs to be followed, concerning for scarring versus cancer. Total time spent on discharge 32 minutes in counseling, documentation, chart review, and direct care with patient. Exam Data for Last 24 hours Vital signs and Labs for Last 24 Hours: Temp Pulse Resp BP Pulse Ox O2 Del Method O2 Flow Rate 98.4 F 83 17 130/61 87 L Room Air 3 03/28/24 08:00 03/28/24 09:00 03/28/24 08:00 03/28/24 08:00 03/28/24 09:32 03/28/24 09:32 03/28/24 09:00 Laboratory Results - last 24 hr 03/27/24 17:28: WBC 23.7 H*, RBC 4.47, Hgb 13.2, Hct 41.3, MCV 92.4, MCH 29.5, MCHC 32.0, RDW 13.3, Plt Count 476 H, MPV 9.4, Neut % (Auto) 95.6 H, Lymph % (Auto) 3.1 L, [place] % (Auto) 0.6 L, Eos % (Auto) 0.0 L, Baso % (Auto) 0.2, Neut # (Auto) 22.6 H, Lymph # (Auto) 0.7, [place] # (Auto) 0.2, Eos # (Auto) 0.0, Baso # (Auto) 0.0, Total Counted 100, Neutrophils % (Manual) 92 H, Band Neutrophils % 1.0, Lymphocytes % (Manual) 7 L, Platelet Estimate Slight increase, Hypochromasia 1+, Sodium 136, Potassium 4.3, Chloride 100, Carbon Dioxide 34 H, Anion Gap 6.3, BUN 29 H, Creatinine 0.50 L, Estimated Creat Clear 30, Estimated GFR 124, Est GFR ( Amer) 150, Glucose 156 H, Calcium 9.4, Total Bilirubin 0.3, AST 29, ALT 23, Alkaline Phosphatase 112, C-Reactive Protein 27.2 H, Total Protein 6.6, Albumin 3.6, Globulin 3.0, Albumin/Globulin Ratio 1.2, HIV Ag/Ab Combo Qual Negative 03/27/24 22:01: SARS-CoV-2 (PCR) Not detected, Influenza Type A (PCR) Not detected, Influenza Type B (PCR) Not detected, RSV (PCR) Not detected, Rhinovirus (PCR) Not detected 03/28/24 06:00: VBG pH 7.48 H, VBG pCO2 43.1, VBG pO2 178.6 H, VBG HCO3 31.4 H, VBG Total CO2 32.7 H, VBG O2 Saturation 99.8 H, VBG Base Excess 7.9 H, VBG Lactic Acid 1.1 03/28/24 07:23: WBC 10.2 D, RBC 3.81 L, Hgb 10.9 L D, Hct 34.5 L, MCV 90.6, MCH 28.6, MCHC 31.6 L, RDW 13.3, Plt Count 376, MPV 9.7, Neut % (Auto) 85.4 H, Lymph % (Auto) 11.5, [place] % (Auto) 2.4, Eos % (Auto) 0.0 L, Baso % (Auto) 0.1, Neut # (Auto) 8.7 H, Lymph # (Auto) 1.2, [place] # (Auto) 0.2, Eos # (Auto) 0.0, Baso # (Auto) 0.0, Total Counted 100, Neutrophils % (Manual) 88 H, Lymphocytes % (Manual) 11, Monocytes % (Manual) 1 L, Platelet Estimate Normal, RBC Morphology Normal, Sodium 134 L, Potassium 4.2, Chloride 102, Carbon Dioxide 34 H, Anion Gap 2.2 L, BUN 31 H, Creatinine 0.50 L, Estimated Creat Clear 28, Estimated GFR 124, Est GFR ( Amer) 150, Glucose 131 H, Calcium 9.2, Magnesium 2.3, Total Bilirubin 0.2, AST 23, ALT 19, Alkaline Phosphatase 91, Total Protein 5.6 L, Albumin 3.1 L D, Globulin 2.5, Albumin/Globulin Ratio 1.2 I & O for Last 24 hours: Intake & Output 03/25/24 03/26/24 03/27/24 03/28/24 23:59 23:59 23:59 23:59 Intake Total 510 / 510 Output Total 0 / 0 0 / 0 Balance 0 / 150 510 / 510 Weight 31.797 kg 31.797 kg Constitutional Constitutional: no acute distress, cachectic, chronically ill appearing and cooperative *Routine HEENT Exam Head: Present normocephalic Eye: Present EOMI and PERRL ENT: Present mucous membranes moist *Routine Neck Exam Neck: Present supple; Absent lymphadenopathy Routine Chest/Breast/Axilla Exam Comments: Prominent ribs, barrel chested *Routine Respiratory Exam Respiratory: Present prolonged expiratory phase, wheezes (Significantly improved, expiratory), diminished air movement and normal respiratory effort; Absent rhonchi or crackles *Routine Cardiovascular Exam Cardiovascular: Present RRR *Routine Abdominal Exam Abdominal: Present soft and normoactive bowel sounds; Absent tenderness *Routine Rectal Exam Patient deferred: visual exam *Routine Exam Patient deferred: external exam *Routine Extremities Exam Extremities: Absent cyanosis, clubbing or edema *Routine Skin Exam Skin: Present warm; Absent rash *Routine Neurological Exam Neurological: Present alert, oriented X3 and moving all extremities; Absent altered mental status Routine Psychiatric Exam Comments: Frustrated. Results Data Completed and Pending Labs on day of discharge: Labs from last 24 hours 03/28/24 03/28/24 03/27/24 07:23 06:00 22:01 WBC 10.2 D RBC 3.81 L Hgb 10.9 L D Hct 34.5 L MCV 90.6 MCH 28.6 MCHC 31.6 L RDW 13.3 Plt Count 376 MPV 9.7 Neut % (Auto) 85.4 H Lymph % (Auto) 11.5 [place] % (Auto) 2.4 Eos % (Auto) 0.0 L Baso % (Auto) 0.1 Neut # (Auto) 8.7 H Lymph # (Auto) 1.2 [place] # (Auto) 0.2 Eos # (Auto) 0.0 Baso # (Auto) 0.0 Total Counted 100 Neutrophils % (Manual) 88 H Band Neutrophils % Lymphocytes % (Manual) 11 Monocytes % (Manual) 1 L Platelet Estimate Normal RBC Morphology Normal Hypochromasia VBG pH 7.48 H VBG pCO2 43.1 VBG pO2 178.6 H VBG HCO3 31.4 H VBG Total CO2 32.7 H VBG O2 Saturation 99.8 H VBG Base Excess 7.9 H VBG Lactic Acid 1.1 Sodium 134 L Potassium 4.2 Chloride 102 Carbon Dioxide 34 H Anion Gap 2.2 L BUN 31 H Creatinine 0.50 L Estimated Creat Clear 28 Estimated GFR 124 Est GFR ( Amer) 150 Glucose 131 H Calcium 9.2 Magnesium 2.3 Total Bilirubin 0.2 AST 23 ALT 19 Alkaline Phosphatase 91 C-Reactive Protein Total Protein 5.6 L Albumin 3.1 L D Globulin 2.5 Albumin/Globulin Ratio 1.2 SARS-CoV-2 (PCR) Not detected HIV Ag/Ab Combo Qual Influenza Type A (PCR) Not detected Influenza Type B (PCR) Not detected RSV (PCR) Not detected Rhinovirus (PCR) Not detected 03/27/24 17:28 WBC 23.7 H* RBC 4.47 Hgb 13.2 Hct 41.3 MCV 92.4 MCH 29.5 MCHC 32.0 RDW 13.3 Plt Count 476 H MPV 9.4 Neut % (Auto) 95.6 H Lymph % (Auto) 3.1 L [place] % (Auto) 0.6 L Eos % (Auto) 0.0 L Baso % (Auto) 0.2 Neut # (Auto) 22.6 H Lymph # (Auto) 0.7 [place] # (Auto) 0.2 Eos # (Auto) 0.0 Baso # (Auto) 0.0 Total Counted 100 Neutrophils % (Manual) 92 H Band Neutrophils % 1.0 Lymphocytes % (Manual) 7 L Monocytes % (Manual) Platelet Estimate Slight increase RBC Morphology Hypochromasia 1+ VBG pH VBG pCO2 VBG pO2 VBG HCO3 VBG Total CO2 VBG O2 Saturation VBG Base Excess VBG Lactic Acid Sodium 136 Potassium 4.3 Chloride 100 Carbon Dioxide 34 H Anion Gap 6.3 BUN 29 H Creatinine 0.50 L Estimated Creat Clear 30 Estimated GFR 124 Est GFR ( Amer) 150 Glucose 156 H Calcium 9.4 Magnesium Total Bilirubin 0.3 AST 29 ALT 23 Alkaline Phosphatase 112 C-Reactive Protein 27.2 H Total Protein 6.6 Albumin 3.6 Globulin 3.0 Albumin/Globulin Ratio 1.2 SARS-CoV-2 (PCR) HIV Ag/Ab Combo Qual Negative Influenza Type A (PCR) Influenza Type B (PCR) RSV (PCR) Rhinovirus (PCR) DS: Diagnosis Discharge Diagnosis (1) Acute exacerbation of chronic obstructive airways disease: Status: Acute Code(s): J44.1 - Chronic obstructive pulmonary disease with (acute) exacerbation (2) Oxygen dependent: Status: Acute Code(s): Z99.81 - Dependence on supplemental oxygen (3) Nicotine dependence, cigarettes, with unspecified nicotine-induced disorders: Status: Acute Code(s): F17.219 - Nicotine dependence, cigarettes, with unspecified nicotine-induced disorders (4) Elevated white blood cell count: Status: Acute Code(s): D72.829 - Elevated white blood cell count, unspecified Qualifiers: Leukocytosis type: leukemoid reaction Qualified Code(s): D72.823 - Leukemoid reaction (5) BMI < 18.5: Status: Acute Code(s): Z68.1 - Body mass index [BMI] 19.9 or less, adult (6) Anorexia: Status: Acute Code(s): R63.0 - Anorexia Meds Home Medications and Allergies Home Medications ?Medication ?Instructions ?Recorded ?Confirmed ?Type albuterol sulfate 90 mcg/actuation 2 puff inhalation Q4RT 03/27/24 03/27/24 History aerosol inhaler fluticasone fur. 100 mcg-umeclid 1 inh inhalation DAILY 03/27/24 03/27/24 History 62.5 mcg-vilant 25 mcg inhalat.powder (Trelegy Ellipta) hydrocodone 10 mg-acetaminophen 1 tab PO Q4HP PRN Pain (Scale 03/27/24 03/27/24 History 325 mg tablet Score 4-6) losartan 50 mg tablet 50 mg PO DAILY 03/27/24 03/27/24 History rosuvastatin 10 mg tablet 10 mg PO DAILY 03/27/24 03/27/24 History azithromycin 500 mg tablet 500 mg PO DAILY 3 days #3 tabs 03/28/24 Rx cefdinir 300 mg capsule 300 mg PO BID 3 days #6 caps 03/28/24 Rx ipratropium 0.5 mg-albuterol 3 mg 3 ml inhalation Q4HP PRN wheezing 03/28/24 Rx (2.5 mg base)/3 mL nebulization #180 mL soln nicotine 21 mg/24 hr daily 21 mg transdermal DAILY #28 ea 03/28/24 Rx transdermal patch prednisone 20 mg tablet 40 mg (2 x 20 mg) PO DAILY 4 days 03/28/24 Rx #8 tabs New Prescriptions to Start Prescriptions: azithromycin Gonzalo Medrano cefdinir Gonzalo Medrano ipratropium-albuterol Gonzalo Medrano nicotine Mitchell,Gonzalo prednisone Gonzalo Medrano Allergies Allergy/AdvReac Type Severity Reaction Status Date / Time No Known Allergies Allergy Unverified 03/19/17 14:28 Discharge Plan Disposition Patient Disposition: Home, Self-Care Condition: Fair Follow up Plan Follow up with: Tomer Moser MD [Physician] - Enter time for follow up Bryce Alonzo MD [Primary Care Provider] - Enter time for follow up Prescriptions/Medication Reconciliation: New nicotine 21 mg/24 hr Patch 24 Hour 21 mg transdermal DAILY Qty: 28 1RF prednisone 20 mg tablet 40 mg PO DAILY 4 Days Qty: 8 0RF cefdinir 300 mg capsule 300 mg PO BID 3 Days Qty: 6 0RF Rx Instructions: first dose 03/29/24 azithromycin 500 mg tablet 500 mg PO DAILY 3 Days Qty: 3 0RF Rx Instructions: first dose 03/29/24 Continued losartan 50 mg tablet 50 mg PO DAILY hydrocodone-acetaminophen 10-325 mg tablet 1 tab PO Q4HP PRN (Reason: Pain (Scale Score 4-6)) albuterol sulfate 90 mcg/actuation HFA aerosol inhaler 2 puff INHALATION Q4RT rosuvastatin 10 mg tablet 10 mg PO DAILY Trelegy Ellipta 100-62.5-25 mcg blister with device 1 inh INHALATION DAILY Changed ipratropium-albuterol 0.5 mg-3 mg(2.5 mg base)/3 mL solution for nebulization 3 ml inhalation Q4HP PRN (Reason: wheezing) Qty: 180 0RF Discontinued levofloxacin 750 mg tablet 750 mg PO DAILY 7 Days Qty: 7 0RF prednisone 50 mg tablet 50 mg PO DAILY 5 Days Qty: 5 0RF prednisone 50 mg tablet 50 mg PO DAILY 5 Days Qty: 5 0RF Problem Reconciliation Problems Reviewed?: Yes Patient Discharge Instructions ACTIVITY: Continue current activity DIET: continue same diet Patient Instructions: DI for Pneumonia -- Adult Print Language: Georgian Providers Primary Care Provider: Bryce Alonzo Admit Provider: Gonzalo Medrano Attending Provider: Gonzalo Medrano
[2024-03-28] MEDS: AZITHROMYCIN 250MG TABLET 500 MG PO (11:19)
[2024-03-28] MEDS: CEFTRIAXONE 1 GM 1 GM in 0.9 % SODIUM CHLORIDE 50 ML IV (11:21)
[2024-03-29 08:13] LABS: HCV Ab Non Reactive (Non Reactive)
--- NOTE | 2024-03-31 12:00 | SW/DCPLANNER ---
Spoke with patient on the phone. Patient stated that she is doing well. Patient stated that she was able to apple picker her new medicine from [facility]. patient stated that she going to make her follow up appointments and that she has no concerns or questions at this time. Miriam Loyd
== END 2024-03-28 12:05 | disposition home or self-care (01) ==
LOC: ER 18:55 → 2ND 19:01
PROVIDERS: Nurse Practitioner Family; Admitting Provider Internal Medicine Adolescent Medicine; Emergency Provider Emergency Medicine; PCP Family Medicine; Visit Provider Internal Medicine Adolescent Medicine
DX: J96.01 Acute respiratory failure with hypoxia (principal); J44.1 Chronic obstructive pulmonary disease with (acute) exacerbation; Z68.1 Body mass index [BMI] 19.9 or less, adult; R63.0 Anorexia; F17.210 Nicotine dependence, cigarettes, uncomplicated; Z79.899 Other long term (current) drug therapy; E43 Unspecified severe protein-calorie malnutrition; Z99.81 Dependence on supplemental oxygen
CPT/HCPCS: 36415; 71046; 71250; 80053; 82803; 83735; 85007; 85014; 85018; 85025; 85048; 85049; 86140; 86803; 87040; 87389; 87631; 93005; 94640; 99285; G0378; J0456; J0696; J2919; J7050; J7620